=== PATIENT | male | born 1940 | race Caucasian/White ===

== ENCOUNTER 2016-05-06 08:28 | Day surgery (SDC) | payer MEDICARE, OTHER ==
[~2016-05-06] VITALS: Ht 188 cm; Wt 127.0 kg
[~2016-05-06 08:28] MED LIST: ABSORICA40 MG PO; AUGMENTIN 875-11 TAB PO; BENADRYL25 MG PO; BETAPACE 80 MG80 MG PO; COLACE100 MG PO; CORDARONE200 MG PO; DILAUDID4 MG PO; DILAUDID8 MG PO; DULCOLAX10 MG/SUPP RC; ELEQUIST; ELIQUIS2.5 MG PO; ELIQUIS5 MG PO; FISH OIL 1,0001 CA1 PO; FISH OIL 1,2001 CA1 PO; FLOMAX0.4 MG PO; LISINOPRIL10 MG PO; LISINOPRIL5 MG; LISINOPRIL5 MG PO; MIRALAX17 GM PO; MS CONTIN15 MG PO; MULTI-DAY VITAM1 TAB PO; PACERONE100 MG; PERCOCET 10/3251 TA1 PO; PHENAZOPYRIDIN100 MG PO; PLAVIX75 MG PO; PRED FORTE5 ML; SENOKOT-S TABLE1 TAB PO; TORADOL30 MG/ML IM; ZOFRAN4 MG PO
[2016-05-06 09:31] VITALS: BP 150/82; Ht 188 cm; Wt 127.0 kg
[2016-05-06 10:08] LABS: BASOPHILS 0.5 % (0.0-2.0); EOSINOPHILS 3.1 % (0-7); HEMATOCRIT 43.9 % (42.0-54.0); HEMOGLOBIN 14.1 g/dL (13.5-17.5); IMMATURE GRANULOCYTES 0.3 % (0-5); LYMPHOCYTES 28.1 % (15-50); MCH 32.6 pg (26.0-34.0); MCHC 32.1 g/dL (31.0-37.0); MCV 101.6 fL (80.0-100.0); MEAN PLATELET VOLUME 10.8 fL (7.4-10.4); PLATELET COUNT 187 10x3/uL (130-400); RBC 4.32 10x6/uL (4.20-6.10); RDW 14.2 % (11.5-14.5); WBC 5.9 10x3/uL (4.8-10.8)
[2016-05-06 10:23] LABS: CALC OSMOLALITY 284 mosm/kg (275-300); CALCIUM 9.2 mg/dL (8.5-10.1); CARBON DIOXIDE 32.7 mmol/L (21.0-32.0); CHLORIDE - SERUM 103 mmol/L (98-107); CREATININE - SERUM 0.8 mg/dL (0.6-1.3); POTASSIUM - SERUM 4.6 mmol/L (3.5-5.1); SODIUM 143 mmol/L (136-145); UREA NITROGEN 12 mg/dL (7-18); eGFR NON AFRICAN AMERICAN > 90 mL/min (90-120)
[2016-05-06 10:26] LABS: GLUCOSE 99 mg/dL (74-106)
[2016-05-06] MEDS ORDERED: DILAUDID2 MG PO (12:21)
--- NOTE | 2016-05-06 12:51 | NUR ---
RECD PT TO RECOVERY WITH DECREASED RESP STATUS, ANESTHESIA AT BS, NRB MASK APPLIED. COLOR DUSKY UPON ARRIVAL, NOW PINK.
--- NOTE | 2016-05-06 13:10 | NUR ---
RESP STATUS NOW WNL ON 4LNC. STILL HAS SOME THICK SECRETIONS, UPDRAFT GIVEN.
--- NOTE | 2016-05-06 15:10 | NUR ---
PT TOLERATED FULL LIQUIDS. UP OOB TO BR, ATTEMPTED TO VOID BUT WAS UNABLE TO AT THIS TIME. MORE LIQUIDS OFFERED. PT SITTING UP ON SIDE OF BED. ENCOURAGED TO DEEP BREATHE AND COUGH TO IMPROVE O2 SAT. CONTINUES ON O2 NASAL CANNULA, TITRATING TO KEEP O2 >92%. WILL CONTINUE TO MONITOR.
--- NOTE | 2016-05-06 16:24 | NUR ---
1600- ATTEMPTED TO VOID WITHOUT SUCCESS. CONTINUES TO DRINK FLUIDS. 1610- 2ND BAG OF LR INFUSING. PT ENCOURAGED TO WALK. O2 >92% WITH O2. 1620- PT RETURNED TO ROOM, PLACED ON 2L O2 TO ACHIEVE SAT >92%, AGAIN ENCOURAGED AND COACHED TO DEEP BREATHE AND COUGH. CONTINUES AT BED SIDE. REPORT GIVEN TO VIJAY CAN.
--- NOTE | 2016-05-06 19:00 | NUR ---
1630 BACK IN ROOM COUGHED UP SOME SECRETIONS O2 AT 2L N/C.SAT TO 91 %.STILL UNABLE TO VOID ON 2ND BACK OF FLUIDS.
--- NOTE | 2016-05-06 19:03 | NUR ---
1715 SAT TO 94 % ON ROOM AIR. UP AND VOIDED WENT OVER DISCHARGE INSTRUCTIONS APPOINTMENT PAIN MED AND VERBALLY UNDERSTANDS.1720 TO HOME VIA W/C WITH WITH .
--- NOTE | 2016-06-04 13:21 | OP ---
PATIENT NAME: ALLI CHILDRESS MEDICAL RECORD: [id number] :36 LOCATION:D.OPS ADMISSION DATE: SURGEON: JARRETT CAMPBELL MD DATE OF OPERATION: 05/06/2016 PREOPERATIVE DIAGNOSES: 1. Internal hemorrhoids. 2. Coronary artery disease. 3. Atrial fibrillation. 4. Hypertension. POSTOPERATIVE DIAGNOSES: 1. Internal hemorrhoids. 2. Coronary artery disease. 3. Atrial fibrillation. 4. Hypertension. PROCEDURE: PPH stapled hemorrhoidectomy. SURGEON: Jarrett Campbell MD REPORT OF PROCEDURE: The patient was placed in the jackknife prone position and the perianal region was prepped and draped in sterile fashion. The PPH anoscope was inserted and sutured down on all 4 sides using interrupted 3-0 silk. The 2-0 Prolene was used to make a pursestring a couple of centimeters inside the dentate line. The patient had a large amount of hemorrhoidal vasculature present with a large collection being on the left side and the anterior side. Once the pursestring was in place, then we inserted the PPH stapler. This was fired and a ring of tissue was removed. There were 2 areas of bleeding and these were oversewn with [id number] 2-0 chromics. We then irrigated out the rectum and assured there was no sign of any further bleeding. At this point, the anoscope was removed and a piece of Gelfoam dipped in [place] was inserted into the anus. COMPLICATIONS: None. CONDITION: Stable. ANESTHESIA: General endotracheal. BLOOD LOSS: Minimal. TRANSINT:[id number] Voice Confirmation ID: [id number] DOCUMENT ID: [id number] JARRETT CAMPBELL MD at 1321 CC: JACI CATES MD and CLARI SANFORD MD [id number] DICTATION DATE: 05/06/16 1225 PROBATE PARALEGAL: 05/06/162007 [facility] 05/06/[address] [address]
== END 2016-05-06 17:20 | disposition home or self-care (01) ==
LOC: D.OPS 08:28 → D.PAN 11:00 → D.OPS 13:15 → D.PAN 13:15 → D.OPS 17:20
PROVIDERS: Surgery
DX: K64.8 Other hemorrhoids (principal); I25.10 Atherosclerotic heart disease of native coronary artery without angina pectoris; I48.91 Unspecified atrial fibrillation; I10 Essential (primary) hypertension

== ENCOUNTER 2017-04-07 12:16 | Inpatient (IN) | payer MEDICARE, OTHER ==
[~2017-04-07] VITALS: Ht 188 cm; Wt 115.7 kg
[~2017-04-07 12:16] MED LIST changes: +DILAUDID2 MG PO
[2017-04-07 14:04] LABS: ALBUMIN 2.8 g/dL (3.4-5.0); ALKALINE PHOSPHATASE 82 U/L (46-116); ALT (SGPT) 30 U/L (10-68); BILIRUBIN - TOTAL 0.47 mg/dL (0.2-1.3); CALC OSMOLALITY 283 mosm/kg (275-300); CALCIUM 8.7 mg/dL (8.5-10.1); CHLORIDE - SERUM 105 mmol/L (98-107); CREATININE - SERUM 0.9 mg/dL (0.6-1.3); GLUCOSE 121 mg/dL (74-106); POTASSIUM - SERUM 3.8 mmol/L (3.5-5.1); PRO BNP 2239 pg/mL (0-450); PROTEIN - SERUM 7.3 g/dL (6.4-8.2); SODIUM 140 mmol/L (136-145); UREA NITROGEN 25 mg/dL (7-18); eGFR NON AFRICAN AMERICAN 87 mL/min (90-120)
[2017-04-07 14:19] VITALS: BP 133/66; BMI 32.8
[2017-04-07 21:39] VITALS: BP 140/87
[2017-04-08 00:15] VITALS: BP 146/54
[2017-04-08 04:00] VITALS: BP 146/75
[2017-04-08 08:54] VITALS: BP 150/93
[2017-04-08 10:33] VITALS: BMI 32.7
[2017-04-08 16:30] VITALS: BP 134/76
[2017-04-08 16:40] VITALS: Ht 188 cm; Wt 115.7 kg
[2017-04-08 23:18] VITALS: BP 145/75
[2017-04-09 05:49] LABS: BASOPHILS 0.3 % (0-2); EOSINOPHILS 0.7 % (0-7); HEMATOCRIT 36.8 % (42.0-54.0); HEMOGLOBIN 11.3 g/dL (13.5-17.5); IMMATURE GRANULOCYTES 0.4 % (0-5); LYMPHOCYTES 18.5 % (15-50); MCH 28.5 pg (26.0-34.0); MCHC 30.7 g/dL (31.0-37.0); MCV 92.9 fL (80.0-100.0); MEAN PLATELET VOLUME 10.8 fL (7.4-10.4); MONOCYTES 8.9 % (2-11); NEUTROPHILS 71.2 % (40-80); RBC 3.96 10x6/uL (4.20-6.10); RDW 15.3 % (11.5-14.5); WBC 6.7 10x3/uL (4.8-10.8)
[2017-04-09 05:50] LABS: PLATELET COUNT 267 10x3/uL (130-400)
[2017-04-09 06:08] LABS: CALC OSMOLALITY 279 mosm/kg (275-300); CALCIUM 8.8 mg/dL (8.5-10.1); CARBON DIOXIDE 31.2 mmol/L (21.0-32.0); CHLORIDE - SERUM 102 mmol/L (98-107); CREATININE - SERUM 0.8 mg/dL (0.6-1.3); GLUCOSE 102 mg/dL (74-106); POTASSIUM - SERUM 3.4 mmol/L (3.5-5.1); SODIUM 140 mmol/L (136-145); eGFR NON AFRICAN AMERICAN > 90 mL/min (90-120)
[2017-04-09 06:13] LABS: UREA NITROGEN 16 mg/dL (7-18)
[2017-04-09 09:24] VITALS: BP 149/95
[2017-04-09] MEDS ORDERED: ZITHROMAX500 MG PO (12:38)
[2017-04-09] MEDS ORDERED: OMNICEF300 MG PO (12:39)
[2017-04-09] MEDS ORDERED: VENTOLIN HFA18 GM INH (12:40)
[2017-04-09 12:48] VITALS: BP 150/74
== END 2017-04-09 14:19 | disposition home or self-care (01) | DRG 193 ==
LOC: D.LAB 12:16 → D.MS 12:18
PROVIDERS: Family Medicine; Internal Medicine Nephrology
DX: J18.9 Pneumonia, unspecified organism (principal); J96.21 Acute and chronic respiratory failure with hypoxia; J44.0 Chronic obstructive pulmonary disease with (acute) lower respiratory infection; N17.9 Acute kidney failure, unspecified; J44.9 Chronic obstructive pulmonary disease, unspecified; I10 Essential (primary) hypertension; E78.5 Hyperlipidemia, unspecified; I48.91 Unspecified atrial fibrillation; I25.10 Atherosclerotic heart disease of native coronary artery without angina pectoris; G25.81 Restless legs syndrome; Z95.1 Presence of aortocoronary bypass graft; R79.89 Other specified abnormal findings of blood chemistry

== ENCOUNTER 2017-04-15 12:18 | Inpatient (IN) | payer MEDICARE, OTHER | END 2017-04-21 13:30 | disposition home health service (06) | DRG 291 | LOC: D.SDCHOLD 12:18 → D.M2 14:47 | DX: I11.0 Hypertensive heart disease with heart failure (principal); J96.21 Acute and chronic respiratory failure with hypoxia; J18.9 Pneumonia, unspecified organism; J44.0 Chronic obstructive pulmonary disease with (acute) lower respiratory infection; I50.9 Heart failure, unspecified; I08.3 Combined rheumatic disorders of mitral, aortic and tricuspid valves; I25.10 Atherosclerotic heart disease of native coronary artery without angina pectoris; I48.0 Paroxysmal atrial fibrillation; Z95.5 Presence of coronary angioplasty implant and graft; Z95.1 Presence of aortocoronary bypass graft ==

== ENCOUNTER 2017-04-26 07:49 | Outpatient (CLI) | payer MEDICARE, OTHER ==
[~2017-04-26] VITALS: Ht 188 cm; Wt 106.8 kg
--- NOTE | ~2017-04-26 | OP ---
PATIENT NAME: ALLI CHILDRESS MEDICAL RECORD: [id number] :38 LOCATION:D.CAT ADMISSION DATE: SURGEON: CLARI SANFORD MD DATE OF OPERATION: 04/26/2017 PROCEDURES: 1. PTCA stent RCA. 2. Intravascular ultrasound. 3. Left heart catheterization. 4. Selective coronary angiography. 5. Vein graft angiography. 6. BLOCK angiography. INDICATION: Angina and coronary artery disease. PROCEDURE IN DETAIL: After informed consent was obtained and after detailed explanation of risks, benefits as well as alternative therapies, the patient elected to proceed with angiogram and angioplasty. The right femoral area was prepped and draped in normal sterile fashion. Right femoral artery was cannulated via modified Seldinger technique with placement of 6-Greek sheath. All catheters exchanged through this sheath. FINDINGS: Left ventriculogram was not performed due to inability to cross the valve. SELECTIVE CORONARY ANGIOGRAPHY: 1. Left main showed no significant angiographic disease. 2. Left anterior descending is totally occluded mid vessel. 3. BLOCK to the LAD is widely patent. Distal LAD is widely patent. 4. Left circumflex has mild irregularies but no flow-limiting stenosis. Previously placed stent is widely patent with no significant restenosis. 5. Right coronary has a 76% stenosis confirmed by intravascular ultrasound proximally. PTCA STENT OF THE RIGHT CORONARY: The stent used was 4.0 x 15 mm Integrity taken to 21 atmospheres. Result was 0% residual stenosis. OVERALL IMPRESSION: Successful percutaneous transluminal coronary angioplasty stent of the right coronary artery going from 76% initial stenosis to 0% residual. TRANSINT:[id number] Voice Confirmation ID: [id number] DOCUMENT ID: [id number] CLARI SANFORD MD CC: [id number] DICTATION DATE: 04/26/17 1047 GEOLOGY TEACHER: 04/26/17 1103 [facility] [address] [place] [address]
--- NOTE | ~2017-04-26 | HP ---
PATIENT: ALLI CHILDRESS MEDICAL RECORD: [id number] ACCOUNT: [id number] LOCATION:[facility] : 36 ADMISSION DATE: 04/26/17 HISTORY AND PHYSICAL EXAMINATION DATE OF SERVICE: 04/26/2017 DIAGNOSES: 1. Angina. 2. Paroxysmal atrial fibrillation. 3. Hypertension. 4. Hyperlipidemia. 5. Chronic obstructive pulmonary disease. 6. Smoking history. 7. Coronary artery disease. HISTORY OF PRESENT ILLNESS: This is a gentleman with past history of coronary artery disease, who began having chest pain, chest discomfort, and association with paroxysmal atrial fibrillation. He was converted to sinus rhythm and maintained on sinus rhythm; however, he continues to have episodes of chest discomfort. REVIEW OF SYSTEMS: The patient reports easy bruising but reports no swollen glands. The patient reports no fever, no night sweats, no significant weight gain, no significant weight loss. No significant exercise tolerance. The patient reports no dry eyes, no irritation, no vision change. Patient reports no difficulty hearing and no ear pain. Patient reports no frequent nose bleeds or nose and sinus problems. Patient reports on arm pain on exertion. No shortness of breath while lying down. No history of heart murmur. Patient reports no cough, no wheezing or coughing up blood. Patient reports no abdominal pain, no vomiting. Normal appetite. No diarrhea and not vomiting blood. No nausea and no constipation. Patient reports no incontinence. No difficulty urinating. No hematuria. No increased frequency. Patient reports no muscle aches. No weakness, no arthralgias, no back pain. No swelling of the extremities. Patient reports no abnormal mole, no jaundice, no rashes. Reports no loss of consciousness. No weakness and no numbness. No seizures, dizziness, or headaches. The patient reports no depression, no sleep disturbance, feeling safe in a relationship and no alcohol abuse. Patient reports on fatigue. Reports no runny nose or sinus pressure. No itching, no hives, and no frequent sneezing. PHYSICAL EXAMINATION: GENERAL APPEARANCE: Well-nourished, well-developed, appears stated age. Level of distress, comfortable. PSYCHIATRIC: Mental status, alert, normal affect. Orientation, oriented to time, place and person. EYES: Lids and conjunctiva, noninjected. No discharge, no pallor. ENT: Lips, teeth, gums, normal dentition. Oropharynx, no cyanosis, no pallor. NECK: Carotid arteries, bilateral normal upstroke, no bruits, no thrills. JUGULAR VEINS: No jugular venous pressure or distention. CERVICAL LYMPH NODES: Nontender, nonenlarged. THYROID: Not enlarged. Nontender. No nodules. LUNGS: Respiratory effort, unlabored. CHEST: Normal curvature. No thoracic deformity. No chest wall tenderness. Percussion, resonant. Auscultation, clear. No wheezes, no rales, no rhonchi. HISTORY AND PHYSICAL [id number] ALLI CHILDRESS CARDIOVASCULAR: Precordial exam, nondisplaced. No heaves or pericardial thrills. Rate and rhythm, regular. Heart sounds, normal S1, normal S2. No S3, no gallop, no rub. Systolic murmur, not heard. Diastolic murmur, not heard. EXTREMITIES: No cyanosis, no edema. Peripheral pulses, full and equal in all extremities, except as noted. No bruits appreciated. ABDOMEN: Soft, nondistended. Normal aorta. No bruit. Nontender. No masses. Liver, nontender, no hepatomegaly. Spleen, nontender, no splenomegaly. MUSCULOSKELETAL: No joint tenderness. No joint swelling. No erythema. NEUROLOGICAL: Normal gait, normal strength, normal tone. SKIN: Warm and dry. OVERALL IMPRESSION: Anginal symptomatology with a past history of coronary artery disease, not secondary to atrial fibrillation, most likely has hemodynamically significant coronary artery disease. We will proceed with coronary angiography. Further care depends on the findings of the angiography. TRANSINT:[id number] Voice Confirmation ID: [id number] DOCUMENT ID: [id number] CLARI SANFORD MD CC: [id number] DICTATION DATE: 04/26/1743 CARPET INSTALLER: 04/26/17 1005 [facility] [address] [place] [address]
--- NOTE | ~2017-04-26 | HEMODYNAMI ---
PATIENT:ALLI CHILDRESS MEDICAL RECORD: [id number] : 36 LOCATION:[facility] ADMISSION DATE: 04/26/17 Generatedon:04/26/201710:43 Patient name: ALLI CHILDRESS Patient #: [id number] SSN: : 1940 Date of study: 04/26/2017 Page: Of Hemodynamic Procedure Report Patient Data Patient Demographics Procedure consent was obtained First Name: ALLI Gender: Male Last Name: FIOR : 1940 Middle Initial: E Age: 76 year(s) Patient #: [id number] Race: Unknown Additional ID: [id number] Contact details [address]: [address] [place] [address] State: [place] City: [place] Zip code: [address] Past Medical History Allergies Allergen Reaction Date Comments Reported Other allergy 04/26/2017 iodine, codeine Admission Admission Data Admission Date: 04/26/2017 Admission Time: 7:49 Lab Results Lab Result Date: 04/26/2017 Lab Result Time: 0:00 Biochemistry Name Units Result Min Max BUN mg/dl 21 --(----)-* 7 18 Creatinine mg/dl 1 --(--*-)-- 0.6 1.3 CBC Name Units Result Min Max Hemoglobin g/dl 11.6 *-(----)-- 13.5 17.5 Procedure Procedure Types Cath Procedure Diagnostic Procedure LHC LHC w/Coronaries w/Grafts FFR/IVUS Intra-Coronary IVUS Initial PCI Procedure Coronary Stent Coronary Stent Initial Miscellaneous Procedures Moderate Sedation up to 15 minutes Procedure Description Procedure Date Procedure Date: 04/26/2017 Procedure Start Time: 10:20 Procedure End Time: 10:42 Procedure Staff Name Function Fortino Sarmiento MD Performing Physician Tayler Gross RT Monitor Gamaliel Gómez RT Scrub Davonte Sibley RN Nurse Procedure Data Cath Procedure Fluoroscopy Diagnostic fluoroscopy Total fluoroscopy Time: 6.7 time: 6.7 min min Diagnostic fluoroscopy Total fluoroscopy dose: dose: 481.64 mGy 481.64 mGy Contrast Material Contrast Material Type Amount (ml) Isovue 300 103 Entry Location Entry Primary Successful Side Size Upsize Upsize Entry Closure Succes sful Closure Location (Fr) 1 (Fr) 2 (Fr) Remarks Device Remarks Femoral Right 5 Fr 6 Fr Exoseal artery Short Estimated blood loss: 10 ml Diagnostic catheters Device Type Used For End Catheter Placement MULTIPACK Pigtail 5 Fr Procedure catheter MULTIPACK JL 4.0 5Fr Procedure catheter MULTIPACK 3DRC 5Fr Procedure catheter DIAGNOSTIC AR 2 MOD 5 Fr Procedure catheter ([id number]) Procedure Complications No complications Procedure Medications Medication Administration Route Dosage Oxygen NC 2 l/min Lidocaine 2% added to field 20 Heparin Flush Bag added to field 2 bags (1000units/500ml NS) 0.9% NaCl I.V. 100 ml/hr Versed I.V. 1 mg Fentanyl I.V. 50 mcg Versed I.V. 1 mg Fentanyl I.V. 50 mcg Versed I.V. 1 mg Fentanyl I.V. 50 mcg Heparin Bolus I.V. 4000 units Integrilin (Bolus I.V. 9.5 ml 2mg/ml) Plavix P.O. 600 mg Hemodynamics Rest HGB: 11.6 (g/dl) Heart Rate: 71 (bpm) Snapshots Pre Cath Intra NCS Post Cath Vital Signs Time Heart Resp SPO2 etCO2 NIBP (mmHg) Rhythm Pain Sedation Rate (ipm) (%) (mmHg) Status Level (bpm) 10:04:18 68 14 97 32.3 138/79(102) NSR 0 (11) 10(A) , No pain 10:08:36 67 17 94 32.2 126/83(97) NSR 0 (11) 10(A) , No pain 10:12:52 67 17 96 0 132/84(97) NSR 0 (11) 10(A) , No pain 10:17:08 65 16 94 19.5 127/75(97) NSR 0 (11) 10(A) , No pain 10:21:28 62 17 95 30 126/73(98) NSR 0 (11) 9(A) , No pain 10:25:49 65 15 94 33.7 122/72(95) NSR 0 (11) 9(A) , No pain 10:30:05 69 16 94 32.3 126/78(98) NSR 0 (11) 9(A) , No pain 10:34:19 68 17 95 20.2 128/78(102) NSR 0 (11) 9(A) , No pain 10:38:35 69 17 95 36 125/72(105) NSR 0 (11) 10(A) , No pain Medications Time Medication Route Dose Verified Delivered Reason Notes Effectiveness by by 10:03:57 Oxygen NC 2 Fortino Buffie used for l/min Torsten Sibley RN procedure 10:04:04 Lidocaine 2% added 20ml Fortino Fortino for local to vial Torsten Sarmiento MD anesthetic field 10:04:09 Heparin Flush added 2 Fortino Fortino used for Bag to bags Torsten Sarmiento MD procedure (1000units/500ml field NS) 10:08:31 0.9% NaCl I.V. 100 Fortino Buffie Per physician ml/hr Torsten Sibley RN 10:19:45 Versed I.V. 1 mg Fortino Arauz for sedation Torsten Sibley RN 10:19:52 Fentanyl I.V. 50 Fortino Buffie for sedation mcg Torsten Sibley RN 10:24:49 Versed I.V. 1 mg Fortino Houserie for sedation Torsten Sibley RN 10:24:53 Fentanyl I.V. 50 Fortino Buffie for sedation mcg Torsten Sibley RN 10:31:12 Versed I.V. 1 mg Fortino Houserie for sedation Torsten Sibley RN 10:31:15 Fentanyl I.V. 50 Fortino Houserie for sedation mcg Torsten Sibley RN 10:33:56 Heparin Bolus I.V. 4000 Fortino Arauz for verifi ed units Torsten Sibley RN anticoagulation with dr sarmiento 10:35:55 Integrilin I.V. 9.5 Fortino Arauz for wasted (Bolus 2mg/ml) ml Torsten Sibley RN antiplatelet 0.5 ml therapy of vial 10:40:19 Plavix P.O. 600 Fortino Arauz for mg Torsten Sibley RN antiplatelet therapy Procedure Log Time Note 9:53:26 Informed consent obtained and on chart 9:53:29 Diagnostic Cath Status : Elective 9:53:54 Gamaliel MARTE(R) (CV) sent for patient. Start room use. 9:53:56 Time tracking: Regular hours 9:54:01 Plan of Care:Hemodynamics will remain stable., Cardiac rhythm will remain stable., Comfort level will be maintained., Respiratory function will remain adequate., Patient/ family verbilizes understanding of procedure., Procedure tolerated without complication., Recovers from procedure without complications.. 9:54:42 Patient received from Pre/Post Procedure Room to CCL 3 Alert and oriented. Tansferred to table in Supine position. 9:54:45 Warm blankets applied, and lexii hugger turned on for patient comfort. 9:54:46 Correct patient and procedure confirmed by team. 10:03:05 Vital chart was started 10:03:17 Rhythm: sinus rhythm 10:03:29 Baseline sample Acquired. 10:03:31 Full Disclosure recording started 10:03:37 H&P Date Dictated: 04/26/2017 New H&P dictated by physician.. 10:03:38 Pre-procedure instructions explained to patient. 10:03:38 Pre-op teaching completed and patient verbalized understanding. 10:03:41 Family in patients room. 10:03:42 Patient NPO since Midnight. 10:03:56 Patient allergic to Other allergyiodine, codeine 10:03:57 Oxygen 2 l/min NC was administered by Davonte Sibley RN; used for procedure; 10:04:04 Lidocaine 2% 20ml vial added to field was administered by Fortino Sarmiento MD; for local anesthetic; 10:04:09 Heparin Flush Bag (1000units/500ml NS) 2 bags added to field was administered by Fortino Sarmiento MD; used for procedure; 10:05:14 Is the patient allergic to Iodine/contrast media? Yes. 10:05:15 Was the patient premedicated? Yes 10:05:18 Patient diabetic? No. 10:05:21 Previous problem with sedation/anesthesia? No ? 10:05:22 Snore? No 10:05:28 Sleep apnea? No 10:05:29 Deviated septum? No 10:05:31 Opens mouth fully? Yes 10:05:32 Sticks out tongue? Yes 10:05:35 Airway obstruction? Yes COPD 10:05:39 Dentures? No ? 10:05:41 Pre procedure: right dorsailis pedis pulse 2+ Normal; easily identifiable; not easily obliterated 10:05:44 Patient pain scale 0/10 ?. 10:08:31 0.9% NaCl 100 ml/hr I.V. was administered by Davonte Sibley RN; Per physician; 10:08:42 IV patent on arrival in right wrist with 0.9% NaCl at [facility]. 10:10:21 Lab Result : BUN 21 mg/dl 10:10:21 Lab Result : Hemoglobin 11.6 g/dl 10:10:21 Lab Result : Creatinine 1 mg/dl 10:10:47 Lab results completed and on chart. 10:10:50 Right groin area was prepped with chlora-prep and draped in sterile fashion 10:10:51 Sharps counted by scrub and verified by R.N. 10:10:51 Alarms reviewed by R. N. 10:12:09 Physician paged 10:12:27 Use device set Femoral Dx 10:12:28 ACIST Syringe (14267) opened to sterile field. 10:12:30 Bag Decanter (2002S) opened to sterile field. 10:12:31 ACIST Hand Control (06645) opened to sterile field. 10:12:32 ACIST Manifold (03736) opened to sterile field. 10:12:32 Tegaderm 4 x 4 (1626W) opened to sterile field. 10:12:34 Medline Cath Pack ([id number]) opened to sterile field. 10:12:34 SHEATH 5FR [place] (ABS019) opened to sterile field. 10:12:35 DIAGNOSTIC WIRE .035 260cm J wire (742631) opened to sterile field. 10:12:36 PERCUTANEOUS ENTRY 19GA needle opened to sterile field. 10:12:39 DIAGNOSTIC Multipack 5Fr catheter set (KF6327) opened to sterile field. 10:15:12 Zero performed for pressure channel P1 10:15:28 Zero performed for pressure channel P1 10:18:59 --------ALL STOP TIME OUT------ 10:18:59 Final Timeout: patient, procedure, and site verified with staff and physician. All members of the team are in agreement. 10:19:01 Right groin site verified by team. 10:19:04 Physical assessment completed. ASA score P 2 - A patient with mild systemic disease as per Fortino Sarmiento MD. 10:19:09 Sedation plan: IV Moderate Sedation Medication:Versed, Fentanyl 10:19:45 Versed 1 mg I.V. was administered by Davonte Sibley RN; for sedation; 10:19:52 Fentanyl 50 mcg I.V. was administered by Davonte Sibley RN; for sedation; 10:20:31 Procedure started. 10:20:35 Local anesthetic to right femoral artery with Lidocaine 2% by Fortino Sarmiento MD.INITIAL ACCESS ONLY 10:21:11 A 5 Fr sheath was inserted into the Right Femoral artery 10::34 A MULTIPACK Pigtail 5 Fr catheter was advanced over the wire and used for Procedure. 10:24:01 unable to cross valve 10:24:04 Catheter exchanged over wire. 10:24:29 A MULTIPACK JL 4.0 5Fr catheter was advanced over the wire and used for Procedure. 10:24:49 Versed 1 mg I.V. was administered by Davonte Sibley RN; for sedation; 10:24:51 LCA angiography performed. 10:24:53 Fentanyl 50 mcg I.V. was administered by Davonte Sibley RN; for sedation; 10:25:54 Catheter removed. 10:26:10 A MULTIPACK 3DRC 5Fr catheter was advanced over the wire and used for Procedure. 10:26:43 BLOCK to LAD angiography performed. 10:27:42 RCA angiography performed. 10:28:06 Catheter removed. 10:28:16 [place] IVUS Catheter (64011U) opened to sterile field. 10:28:20 SHEATH 6FR [place] (OQN344) opened to sterile field. 10:28:25 INFLATOR Merit BasixCompak (TR1022) opened to sterile field. 10:29:01 Sheath upsized to a 6 Fr Short. 10:29:21 GUIDE 6FR AR 2.0 catheter ([id number]) opened to sterile field. 10:30:00 GRAPHIX 182cm guide wire ([id number]) opened to sterile field. 10:30:09 6 Fr ar2 guide catheter was inserted over the wire 10:30:14 pt graphix wire advanced. 10:31:03 Wire advanced across lesion. 10:31:12 Versed 1 mg I.V. was administered by Davonte Sibley RN; for sedation; 10:31:15 Fentanyl 50 mcg I.V. was administered by Davonte Sibley RN; for sedation; 10:31:23 IVUS catheter advanced over wire. 10:33:28 IVUS pass to RCA lesion performed. 10:33:29 IVUS catheter removed over wire. 10:33:56 Heparin Bolus 4000 units I.V. was administered by Davonte Sibley RN; for anticoagulation; verified with dr sarmiento 10:35:55 Integrilin (Bolus 2mg/ml) 9.5 ml I.V. was administered by Davonte Sibley RN; for antiplatelet therapy; wasted 0.5 ml of vial 10:36:19 Inflation Number: 1 A INTEGRITY RX 4.0 x 15 stent ([id number]) was prepped and advanced across the Prox RCA. The stent was deployed at 21 ROSS for 0:10 (min:sec). 10:36:49 Stent catheter was removed intact over wire. 10:36:50 Wire removed. 10:36:50 Guide catheter removed. 10:36:56 EXOSEAL 6Fr (EX600) opened to sterile field. 10:37:06 Sheath removed intact; hemostasis achieved with Exoseal to the Right Femoral artery. 10:37:52 Procedure ended.(Physican Out) 10:38:10 Fluoroscopy time 06.70 minutes. 10:38:21 Flurop Dose total: 481.64 10:38:21 Fluoroscopy dose: 481.64 mGy 10:38:24 Contrast amount:Isovue 300 103ml. 10:38:26 Sharps counted by scrub and verified by R.N. 10:38:31 Post-op/insertion site Right Femoral artery dressed using a 4 x 4 and Tegaderm. 10:38:36 Post right femoral artery:stable, soft, clean and dry 10:38:39 Post procedure: right dorsailis pedis pulse 2+ Normal; easily identifiable; not easily obliterated. 10:38:42 Post-procedure physical assessment completed. ASA score P 2 - A patient with mild systemic disease as per Fortino Sarmiento MD. 10:38:45 Post procedure rhythm: unchanged. 10:38:46 Estimated blood loss: 10 ml 10:38:48 Post procedure instruction explained to patient.Patient verbalizes understanding. 10:38:51 Patient needs reinforcement of post procedure teaching. 10:39:04 Procedure type changed to Cath procedure, Diagnostic procedure, LHC, LHC w/Coronaries w/Grafts, FFR/IVUS, Intra-Coronary IVUS Initial, PCI procedure, Coronary Stent, Coronary Stent Initial, Miscellaneous Procedures, Moderate Sedation up to 15 minutes 10:40:19 Plavix 600 mg P.O. was administered by Davonte Sibley RN; for antiplatelet therapy; 10:41:55 A DIAGNOSTIC AR 2 MOD 5 Fr catheter ([id number]) was advanced over the wire and used for Procedure. 10:42:05 ar 2 diag opened, but not used 10:42:22 Procedure and supply charges have been captured, reviewed, submitted and are correct. 10:42:25 Procedure Complication : No complications 10:42:26 Vital chart was stopped 10:42:28 See physician's report for complete and final results. 10:42:30 Report given to Pre/Post Procedure Room. 10:42:33 Patient transfered to Pre/Post Procedure Room with Bed. 10:42:35 Procedure ended. 10:42:35 Full Disclosure recording stopped 10:42:43 End room use (Document Last) Intervention Summary Intervention Notes Time ActionType Lesion and Equipment Action# Pressure Duration Attributes Used 10:36:19 Place stent Prox RCA INTEGRITY RX 1 21 00:10 4.0 x 15 stent ([id number]) Device Usage Item Name Manufacture Quantity Catalog Number Hospital Part Current Mini mal Lot# / Charge Number Stock Stock Serial# Code ACIST Acist 1 29265 501272 563840 703753 20 Syringe Medical (77573) Systems Inc Bag Decanter Microtek 1 2001S 281407 90358 456565 5 (2001S) Medical Inc. ACIST Hand Acist 1 50426 160650 512655 631000 5 Control Medical (62199) Systems Inc ACIST Acist 1 19138 338586 360313 844358 5 Manifold Medical (93589) Systems Inc Tegaderm 4 x 3M 1 1626W 101333 106836 556535 5 4 (1626W) Medline Cath Cardinal 1 [id number] 605335 82801 324772 5 [facility] ([id number]) SHEATH 5FR Terumo 1 SOP327 879857 016571 466601 40 [place] (CZF050) DIAGNOSTIC [facility] [place] 1 500247 443820 278055 164334 30 WIRE .035 260cm J wire (738611) PERCUTANEOUS Cook Medical 1 U15016 836717 783120 5 ENTRY 19GA needle DIAGNOSTIC Cardinal 1 LX7127 228475 29604 259132 30 Multipack Health 5Fr catheter set (FQ6997) MULTIPACK Cardinal 1 291259 5 Pigtail 5 Fr Health catheter MULTIPACK JL Cardinal 1 877151 5 4.0 5Fr Health catheter MULTIPACK Cardinal 1 932208 5 3DRC 5Fr Health catheter [place] 1 98591N 655109 060008 081850 8 [place] IVUS Catheter (51079Y) SHEATH 6FR Terumo 1 HJO149 265004 710846 412009 40 [place] (GIJ943) INFLATOR Merit 1 CR8888 081398 273013 379006 15 [facility] Medical BasixCompak (XR9857) GUIDE 6FR AR Medtronic 1 EN2YP07 093745 79961 615401 1 2.0 catheter (CP5YE16) GRAPHIX [place] 1 [id number] 580845 350006 536213 5 182cm guide Scientific wire ([id number]) INTEGRITY RX Medtronic 1 [id number] 672505 910039 391735 5 [id number] 4.0 x 15 stent ([id number]) EXOSEAL 6Fr Cardinal 1 EX600 569667 907798 868160 10 (EX600) Health DIAGNOSTIC Cardinal 1 [id number] 113463 780500 155528 20 AR 2 MOD 5 Health Fr catheter (478159Q) Signature Audit [place] Stage Time Signature Unsigned Intra-Procedure 04/26/2017 Tayler Gross 10:43:00 AM RT(R) Signatures Monitor : Tayler Gross Signature : RT Date : Time : [facility] [address] [place] [address]
[~2017-04-26 07:49] MED LIST changes: +K-TAB10 MEQ PO; +LASIX20 MG PO; +OMNICEF300 MG PO; +VENTOLIN HFA18 GM INH; +ZITHROMAX500 MG PO
[2017-04-26 08:18] VITALS: BP 135/71; Ht 188 cm; Wt 106.8 kg
[2017-04-26 08:29] LABS: HEMATOCRIT 37.4 % (42.0-54.0); HEMOGLOBIN 11.6 g/dL (13.5-17.5); LYMPHOCYTES 19.9 % (15-50); MCH 27.4 pg (26.0-34.0); MCV 88.2 fL (80.0-100.0); MEAN PLATELET VOLUME 10.1 fL (7.4-10.4); NEUTROPHILS 77.1 % (40-80); PLATELET COUNT 293 10x3/uL (130-400); RBC 4.24 10x6/uL (4.20-6.10); WBC 5.9 10x3/uL (4.8-10.8)
[2017-04-26 08:37] LABS: CALC OSMOLALITY 279 mosm/kg (275-300); CHLORIDE - SERUM 103 mmol/L (98-107); GLUCOSE 125 mg/dL (74-106); POTASSIUM - SERUM 4.7 mmol/L (3.5-5.1); SODIUM 138 mmol/L (136-145); UREA NITROGEN 21 mg/dL (7-18); eGFR NON AFRICAN AMERICAN 77 mL/min (90-120)
[2017-04-26] MEDS ORDERED: PLAVIX75 MG PO (10:47)
[2017-04-26] MEDS ORDERED: BAYER CHEWABLE81 MG PO (10:47)
== END 2017-04-26 14:30 | disposition home or self-care (01) ==
LOC: D.CATH 07:49
PROVIDERS: Internal Medicine Interventional Cardiology
DX: I25.10 Atherosclerotic heart disease of native coronary artery without angina pectoris (principal); Z01.812 Encounter for preprocedural laboratory examination

== ENCOUNTER 2018-12-25 13:23 | Inpatient (IN) | payer MEDICARE, OTHER ==
[~2018-12-25] VITALS: Ht 188 cm; Wt 109.5 kg
[~2018-12-25 13:23] MED LIST changes: +BAYER CHEWABLE81 MG PO
[2018-12-25 13:47] LABS: BASOPHILS 0.1 % (0-2); EOSINOPHILS 0 % (0-7); HEMATOCRIT 39.7 % (42.0-54.0); HEMOGLOBIN 12.8 g/dL (13.5-17.5); IMMATURE GRANULOCYTES 0.3 % (0-5); LYMPHOCYTES 7.9 % (15-50); MCH 29.4 pg (26.0-34.0); MCHC 32.2 g/dL (31.0-37.0); MCV 91.3 fL (80.0-100.0); MEAN PLATELET VOLUME 10.7 fL (7.4-10.4); MONOCYTES 6.9 % (2-11); NEUTROPHILS 84.8 % (40-80); RBC 4.35 10x6/uL (4.20-6.10); RDW 17.1 % (11.5-14.5); WBC 9.2 10x3/uL (4.8-10.8)
[2018-12-25 13:48] LABS: PLATELET COUNT 147 10x3/uL (130-400)
--- NOTE | 2018-12-25 13:48 | NUR ---
BLOOD TO LAB
[2018-12-25 13:57] LABS: CALC OSMOLALITY 282 mosm/kg (275-300); CALCIUM 8.5 mg/dL (8.5-10.1); CARBON DIOXIDE 24.9 mmol/L (21.0-32.0); CHLORIDE - SERUM 102 mmol/L (98-107); CREATININE - SERUM 1.3 mg/dL (0.6-1.3); INR 1.33 (0.85-1.17); SODIUM 135 mmol/L (136-145); UREA NITROGEN 25 mg/dL (7-18); eGFR NON AFRICAN AMERICAN 56 mL/min (90-120)
[2018-12-25 13:58] LABS: APTT 36.6 SECONDS (22.8-39.4); GLUCOSE 252 mg/dL (74-106)
[2018-12-25 13:59] LABS: D-DIMER-QUANTITATIVE 1.4 ug/mLFEU (0.20-0.54)
[2018-12-25 14:25] LABS: ALBUMIN 3.3 g/dL (3.4-5.0); ALKALINE PHOSPHATASE 81 U/L (46-116); ALT (SGPT) 20 U/L (10-68); BILIRUBIN - TOTAL 0.94 mg/dL (0.2-1.3); CKMB 0.6 U/L (0.0-3.6); CREATINE KINASE 87 UL (21-232); MAGNESIUM - SERUM 1.5 mg/dL (1.8-2.4); PRO BNP 2150 pg/mL (0-450); PROTEIN - SERUM 7.5 g/dL (6.4-8.2); TROPONIN-I < 0.017 ng/mL (0.000-0.060)
--- NOTE | 2018-12-25 18:30 | NUR ---
TRANSFER FROM ER BY W/C. CASEINTED TO ROOM. CALL LIGHT IN REACH. WILL CONT. PLAN OF CARE.
[2018-12-25 19:27] VITALS: BP 123/53; BMI 30.8
[2018-12-25 19:42] VITALS: BP 123/53
--- NOTE | 2018-12-25 20:00 | NUR ---
RECIEVED REPORT FROM OUTGOING NURSE. INITIAL ASSESSMENT COMPLETED. VSS, AAOX3, NO S/S OF RESP DISTRESS. PT ON TELE, 78 PACED AT THIS TIME. PT DENIES ANY PAIN AT THIS TIME. ON 2L. WILL CPOC.
[2018-12-25 23:49] VITALS: BP 130/49
[2018-12-26 04:48] VITALS: BP 142/58
[2018-12-26 05:53] LABS: BASOPHILS 0.2 % (0-2); EOSINOPHILS 0 % (0-7); HEMATOCRIT 40.3 % (42.0-54.0); IMMATURE GRANULOCYTES 0.3 % (0-5); LYMPHOCYTES 10.4 % (15-50); MCH 29.5 pg (26.0-34.0); MCHC 32.3 g/dL (31.0-37.0); MCV 91.4 fL (80.0-100.0); MEAN PLATELET VOLUME 9.8 fL (7.4-10.4); MONOCYTES 8.1 % (2-11); PLATELET COUNT 121 10x3/uL (130-400); RBC 4.41 10x6/uL (4.20-6.10); RDW 17.3 % (11.5-14.5)
[2018-12-26 05:54] LABS: WBC 12.4 10x3/uL (4.8-10.8)
[2018-12-26 06:38] LABS: CALCIUM 8.8 mg/dL (8.5-10.1); CARBON DIOXIDE 30.4 mmol/L (21.0-32.0); CHLORIDE - SERUM 102 mmol/L (98-107); CKMB 3.3 U/L (0.0-3.6); CREATININE - SERUM 1.3 mg/dL (0.6-1.3); MAGNESIUM - SERUM 1.7 mg/dL (1.8-2.4); PHOSPHOROUS 3.7 mg/dL (2.5-4.9); POTASSIUM - SERUM 3.6 mmol/L (3.5-5.1); SODIUM 138 mmol/L (136-145); TROPONIN-I 0.047 ng/mL (0.000-0.060); UREA NITROGEN 26 mg/dL (7-18); eGFR NON AFRICAN AMERICAN 56 mL/min (90-120)
[2018-12-26 06:41] LABS: CALC OSMOLALITY 283 mosm/kg (275-300); CREATINE KINASE 419 UL (21-232); GLUCOSE 145 mg/dL (74-106)
[2018-12-26 09:04] VITALS: BP 141/62
[2018-12-26 12:59] VITALS: BP 115/81
[2018-12-26 13:13] VITALS: Ht 188 cm; Wt 109.5 kg
[2018-12-26 16:50] VITALS: BP 156/62
[2018-12-26 17:35] LABS: ERYTHROCYTE SEDIMENTATION RATE 19 mm/hr (0-20)
--- NOTE | 2018-12-26 18:50 | NUR ---
EVENING ROUNDS COMPLETE. PT SITTING UP IN BED. NO SIGNS OF DISTRESS. PT DENIES ANY NEEDS OR PAIN AT THIS TIME. CL IN REACH, BED IN LOWEST POSITION.
[2018-12-26 20:00] VITALS: BP 118/61
[2018-12-27] VITALS: BP 122/54
[2018-12-27 04:00] VITALS: BP 123/57
[2018-12-27 05:58] LABS: BASOPHILS 0.4 % (0-2); EOSINOPHILS 1.7 % (0-7); HEMATOCRIT 41.6 % (42.0-54.0); HEMOGLOBIN 13.4 g/dL (13.5-17.5); IMMATURE GRANULOCYTES 0.1 % (0-5); LYMPHOCYTES 14.9 % (15-50); MCH 29.6 pg (26.0-34.0); MCHC 32.2 g/dL (31.0-37.0); MONOCYTES 10.3 % (2-11); NEUTROPHILS 72.6 % (40-80); PLATELET COUNT 124 10x3/uL (130-400); RBC 4.52 10x6/uL (4.20-6.10); RDW 17.6 % (11.5-14.5)
[2018-12-27 06:28] LABS: CALC OSMOLALITY 284 mosm/kg (275-300); CALCIUM 8.4 mg/dL (8.5-10.1); CARBON DIOXIDE 31.4 mmol/L (21.0-32.0); CHLORIDE - SERUM 102 mmol/L (98-107); GLUCOSE 110 mg/dL (74-106); MAGNESIUM - SERUM 1.9 mg/dL (1.8-2.4); PHOSPHOROUS 2.8 mg/dL (2.5-4.9); POTASSIUM - SERUM 3.2 mmol/L (3.5-5.1); SODIUM 140 mmol/L (136-145); UREA NITROGEN 26 mg/dL (7-18); eGFR NON AFRICAN AMERICAN 76 mL/min (90-120)
[2018-12-27 06:37] LABS: WBC 7.8 10x3/uL (4.8-10.8)
--- NOTE | 2018-12-27 07:37 | NUR ---
PT LAYING DOWN. STATES AWAITING D/C. DENIES NEEDS OR PAIN AT THIS TIME. ALERT AND ORIENTED. RR EVEN AND UNLABORED. WILL CONTINUE TO MONITOR.
--- NOTE | 2018-12-27 09:05 | NUR ---
REVA YAN NOTIFIED OF EVENT, ABG'S ORDERED PER T.
[2018-12-27 11:06] VITALS: BP 114/44
[2018-12-27] MEDS ORDERED: KLOR-CON M2020 MEQ PO (11:42)
[2018-12-27] MEDS ORDERED: LASIX40 MG PO (11:42)
[2018-12-27] MEDS ORDERED: MUCINEX600 MG PO (11:43)
--- NOTE | 2018-12-27 13:46 | NUR ---
D/C PAPERWORK REVIEWED WITH PT AND SPOUSE. VERBALIZED UNDERSTANDING AND NO FURTHER QUESTIONS AT THIS TIME. MONITOR REMOVED AND SENT BACK TO PRINCIPAL TECHNICAL ARCHITECT. D/C IV WITH CATHETER TIP INTACT. PT LEFT WITH ALL BELONGINGS VIA WHEELCHAIR TO PERSONAL VEHICLE.
--- NOTE | 2018-12-27 17:08 | MORECARE ---
CASE MANAGEMENT DISCHARGE SUMMARY PATIENT: ALLI CHILDRESS UNIT: [id number] ADM DATE: 12/25/18 AGE: 78 : 38 SEX: M ROOM/BED: D.0490 AUTHOR: PAMELA,DOC PHYSICIAN: REFERRING PHYSICIAN: FROYLAN CARPENTER MD DATE OF SERVICE: 12/27/18 Discharge Plan Patient Name: ALLI CHILDRESS Facility: [facility]:[place] : 1940 Planned Disposition: Home Anticipated Discharge Date: 12/27/18 Discharge Date: 12/27/2018 Expected LOS: 2 Initial Reviewer: [email or web address] Initial Review Date: 12/27/2018 Generated: 12/27/18 6:08 pm Comments DCP- Discharge Planning Updated by [email or web address]: Víctor Gonzales on 12/27/18 4:[address] Patient Name: ALLI CHILDRESS Admission Status: ER Accout number: [id number] Admission Date: 12-25-2018 : 1940 Admission Diagnosis: Attending: FROYLAN CARPENTER Current LOS: 2 Anticipated DC Date: 12-27-2018 Planned Disposition: Home Primary Insurance: MEDICARE A & B Discharge Planning Comments: CM MET WITH PT IN ROOM TO DISCUSS DISCHARGE PLANNING AND NEEDS. ALLI CHILDRESS provided verbal consent to discuss current and ongoing needs with/in the presence of: SIGNIFICANT OTHER, PRASAD. PT REPORTS LIVING AT HOME INDEPENDENTLY SIGNIFICANT OTHER. PT HAS A CANE WITH NO MEDICAL EQUIPMENT PROVIDER PREFERNECE. PT HAS NO OUTSIDE SERVICES ASSISTING IN THE HOME. CM DISCUSSED AVAILABILITY OF HOME HEALTH, REHAB SERVICES AND MEDICAL EQUIPMENT. PT DENIES DISCHARGE NEEDS, REPORTS PRASAD IS HERE TO TRANPSORT HOME AT DISCHARGE TODAY. FEDERAL AID COORDINATOR NURSE NOTIFIED. Hosted Services Analyst: Víctor Gonzales DCPIA - Discharge Planning Initial Assessment Updated by [email or web address]: Víctor Gonzales on 12/27/18 5:03 pm * Is the patient Alert and Oriented? Yes * How many steps to enter\exit or inside your home? * PCP DR. CATES * Pharmacy [facility] * Preadmission Environment Home with Family * ADLs Independent * Equipment Cane * Other Equipment NO MEDICAL EQUIPMENT PROVIDER PREFERENCE * List name and contact numbers for known caregivers / representatives who currently or will assist patient after discharge: PRASAD SEGURA, SIGNIFICANT OTHER, * Verbal permission to speak to the caregivers and representatives has been obtained from the patient. Yes * Community resources currently utilized None * Please name any agencies selected above. NONE * Additional services required to return to the preadmission environment? No * Can the patient safely return to the preadmission environment? Yes * Has this patient been hospitalized within the prior 30 days at any hospital? No Patient Name: ALLI CHILDRESS Page [phone] at 1708 All edits/amendments must be made on the electronic document DICTATION DATE: 12/27/181707 REPORT ANALYST: SUMANTH 12/27/181707 RPT#: [id number] DC DATE:12/27/18 STATUS: DIS IN [facility] [address] [place] [address] END OF REPORT
--- NOTE | 2019-01-02 11:40 | CN ---
PATIENT NAME:ALLI CHILDRESS MEDICAL RECORD: [id number] : 36 LOCATION:D. D.2109 ADMIT DATE: 12/25/18 ACCOUNT: [id number] CONSULTING PHYSICIAN: CLARI SANFORD MD REFERRING PHYSICIAN: FROYLAN CARPENTER MD DATE OF CONSULTATION: 12/25/2018 DIAGNOSES: 1. Shortness of breath. 2. Pulmonary edema. 3. Coronary artery disease. 4. Atrial fibrillation. 5. Hypertension. 6. Hyperlipidemia. 7. Cardiomyopathy. 8. Valvular heart disease, aortic valve replacement. HISTORY OF PRESENT ILLNESS: Mr. Childress is a patient known to us with history of coronary artery disease, status post coronary artery bypass graft surgery in April. He has not had any chest pain or chest discomfort. He was making a trip back from [place]. While in [place] [facility], he became very shaky, tremulous and he has been short of breath since. His chest x-ray is compatible with mild pulmonary edema. He has atrial fibrillation, which has been a problem and he has been short of breath from the atrial fibrillation. He is set for ablation for the atrial fibrillation Tuesday with Dr. Martinez in [place]. He is status post pacemaker by Dr. Martinez 2 weeks ago. His blood pressure is controlled on Coreg. Last evaluation of his ejection fraction was 40%. He does have valvular heart disease, aortic valve is replaced and this has been stable. PHYSICAL EXAMINATION: CONSTITUTIONAL/GENERAL APPEARANCE: Well nourished, well developed, appears stated age. EYES: Lids and conjunctivae noninjected. No discharge. No pallor. ENT: Lips within normal limit. No cyanosis. No pallor. NECK: Carotid arteries, bilateral normal upstroke. No bruits. No thrills. No jugular venous pressure or distention. CERVICAL LYMPH NODES: Nontender. Nonenlarged. THYROID: Not enlarged. No nodules. CARDIOVASCULAR: Precordial exam, nondisplaced. No heaves or pericardial thrills. Rate and rhythm, regular. Heart sounds, normal S1, normal S2. No S3, no gallop, no rub. Systolic murmur, not heard. Diastolic murmur, not heard. LUNG: He has bibasilar crackles compatible with pulmonary edema. ABDOMEN: Soft, nondistended, nontender. No abdominal pain, no vomiting and normal appetite. MUSCULOSKELETAL: No joint tenderness, normal gait, normal tone. SKIN: Warm and dry. OVERALL IMPRESSION: Mild pulmonary edema, congestive heart failure from chronic systolic dysfunction. We will reevaluate his ejection fraction on echocardiogram today, institute diuretic therapy this should be all he needs and he should be out within the next 1-2 days after diuretic therapy has been instituted. We definitely want him to get out in time to make his ablation for his atrial fibrillation as this is an extension of the atrial fibrillation contributing to the shortness of breath and pulmonary edema. CONSULT REPORT [id number] ALLI CHILDRESS TRANSINT:[id number] Voice Confirmation ID: [id number] DOCUMENT ID: [id number] CLARI SANFORD MD at 1140 CC: [id number] DICTATION DATE: 12/25/18 1548 SENIOR IOS SOFTWARE ENGINEER: 12/25/182221 DIS IN 12/27/18 [facility] [address] [place] [address]
--- NOTE | 2019-01-02 11:41 | EC ---
PATIENT:ALLI CHILDRESS DATE OF SERVICE: 12/25/18 SEX: M MEDICAL RECORD: [id number] DATE OF : 36 LOCATION:D. D.211 AGE OF PATIENT: 78 ADMISSION DATE: 12/25/18 REFERRING PHYSICIAN: INTERPRETING PHYSICIAN: CLARI SARMIENTO MD ECHOCARDIOGRAM REPORT ECHO CHARGES 4 ECHO COMPLETE Date: 12/26/18 CLINICAL DIAGNOSIS: SOB/ TAVR ECHOCARDIOGRAPHIC MEASUREMENTS (adult normal given) AC root (d.<3.7cm) 2.6 cm LV Septum d (<1.2 cm> 1.1 cm Valve Excursion 1.1 cm LV Septum (systole) 1.9 cm Left Atria (s.<4.0cm> 5.5 cm LVPW d(<1.2cm) 1.2 cm RV (d.<2.3cm) 4.1 cm LVPW (sytole) 1.3 cm LV diastole(<5.6CM) 8.1 cm MV E-F(>70mm/sec) cm LV systole 6.5 cm LVOT Diameter 1.9 cm MV exc.(>10mm) cm Est.ejection fraction (50-75%) % DOPPLER: LVIT cm/sec A 26 cm/sec E 114 cm/sec LA cm/sec RVSP 28.4 mmHg LVOT 121 cm/sec AOP1/2T m/s Asc. Ao 244 cm/sec RVOT 71 cm/sec RA cm/sec PA 85 cm/sec AV Gradient Peak 23.8 mmHg AV Mean 12.8 mmHg AV Area 1.5 cm MV Gradient Peak 6.5 mmHg MV Mean 2.5 mmHg MV Area cm COMMENTS: Oil Changer: Curt [facility] Pool Player: 1 Dr. Sarmiento TAPE# PACS Pericardial Effusion N DATE OF SERVICE: PROCEDURE: Echocardiogram. FINDINGS: 1. Left ventricular chamber size is dilated. Left ventricular systolic function is markedly reduced at 20% to 25%. 2. Left atrium is enlarged at 5.5 cm. Right atrium and right ventricular chamber sizes are as well, moderate to severely dilated. 3. 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 The remaining valvular structures have normal structure and motion. 4. Doppler interrogation reveals mild aortic insufficiency, mild mitral regurgitation, mild tricuspid regurgitation, no other valvular insufficiency or stenosis. 5. No evidence of pericardial effusion or left ventricular thrombus. TRANSINT:[id number] Voice Confirmation ID: [id number] DOCUMENT ID: [id number] CLARI SARMIENTO MD at 1141 CC: [id number] DICTATION DATE: 12/27/181202 DOCKWORKER: 12/27/18 120 DIS IN 12/27/18 [facility] [address] [id number]
== END 2018-12-27 13:53 | disposition home or self-care (01) | DRG 292 ==
LOC: D.ER 13:23 → D.M2 17:15
PROVIDERS: Family Medicine; ADMIT Internal Medicine Nephrology; ATTEND Internal Medicine Nephrology
DX: I11.0 Hypertensive heart disease with heart failure (principal); E87.1 Hypo-osmolality and hyponatremia; N17.9 Acute kidney failure, unspecified; I50.23 Acute on chronic systolic (congestive) heart failure; E78.5 Hyperlipidemia, unspecified; I42.9 Cardiomyopathy, unspecified; D64.9 Anemia, unspecified; I25.10 Atherosclerotic heart disease of native coronary artery without angina pectoris; I48.91 Unspecified atrial fibrillation

== ENCOUNTER 2019-02-05 10:17 | Emergency (ER) | payer MEDICARE, OTHER ==
[~2019-02-05] VITALS: Ht 188 cm; Wt 99.8 kg
[~2019-02-05 10:17] MED LIST changes: +KLOR-CON M2020 MEQ PO; +LASIX40 MG PO; +MUCINEX600 MG PO
[2019-02-05 10:19] VITALS: Ht 188 cm; Wt 99.8 kg
[2019-02-05] MEDS ORDERED: ELIQUIS5 MG PO (10:23)
[2019-02-05 11:06] LABS: CALC OSMOLALITY 276 mosm/kg (275-300); CARBON DIOXIDE 27.5 mmol/L (21.0-32.0); CHLORIDE - SERUM 103 mmol/L (98-107); CREATININE - SERUM 0.8 mg/dL (0.6-1.3); POTASSIUM - SERUM 3.5 mmol/L (3.5-5.1); SODIUM 136 mmol/L (136-145); UREA NITROGEN 14 mg/dL (7-18); eGFR NON AFRICAN AMERICAN > 90 mL/min (90-120)
[2019-02-05 11:07] LABS: GLUCOSE 178 mg/dL (74-106)
[2019-02-05 11:12] LABS: ALBUMIN 2.1 g/dL (3.4-5.0); ALKALINE PHOSPHATASE 97 U/L (46-116); ALT (SGPT) 14 U/L (10-68); BILIRUBIN - TOTAL 0.81 mg/dL (0.2-1.3); PROTEIN - SERUM 7.7 g/dL (6.4-8.2); URIC ACID 4.3 mg/dL (2.6-7.2)
[2019-02-05 11:19] LABS: C-REACTIVE PROTEIN 16.4 mg/dL (0.0-0.9)
[2019-02-05 11:23] LABS: BASOPHILS 0.2 % (0-2); EOSINOPHILS 0.7 % (0-7); HEMOGLOBIN 11.5 g/dL (13.5-17.5); IMMATURE GRANULOCYTES 0.4 % (0-5); LYMPHOCYTES 11.8 % (15-50); MCHC 31.9 g/dL (31.0-37.0); MEAN PLATELET VOLUME 10.2 fL (7.4-10.4); MONOCYTES 4.5 % (2-11); NEUTROPHILS 82.4 % (40-80); RBC 3.83 10x6/uL (4.20-6.10); RDW 16.3 % (11.5-14.5); WBC 9.1 10x3/uL (4.8-10.8)
[2019-02-05 11:33] LABS: PLATELET COUNT 335 10x3/uL (130-400)
[2019-02-05 14:09] LABS: PROTEIN - BODY FLUID 4.7 G/DL
[2019-02-05 15:07] LABS: EOS BF 5 %; MACROPHAGES BF 1 %; NEUT - BF 91 %
[2019-02-05 20:01] VITALS: BP 143/82
[2019-02-11 17:07] LABS: AEROBE ID Final report (())
== END 2019-02-05 19:57 | disposition short-term general hospital (02) ==
LOC: D.ER 10:17
PROVIDERS: Family Medicine
DX: M00.9 Pyogenic arthritis, unspecified (principal); T84.54XA Infection and inflammatory reaction due to internal left knee prosthesis, initial encounter; I11.0 Hypertensive heart disease with heart failure; I50.9 Heart failure, unspecified; I25.10 Atherosclerotic heart disease of native coronary artery without angina pectoris; Z95.1 Presence of aortocoronary bypass graft; Z95.0 Presence of cardiac pacemaker

== ENCOUNTER 2019-05-11 11:36 | Inpatient (IN) | payer MEDICARE, OTHER ==
[~2019-05-11] VITALS: Ht 188 cm; Wt 103.2 kg
[2019-05-11] VITALS (22 sets, daily range): BP systolic 108–183; BP diastolic 52–78; Ht 188 cm; Wt 103.2 kg
--- NOTE | ~2019-05-11 | HEMODYNAMI ---
PATIENT:ALLI CHILDRESS MEDICAL RECORD: [id number] : 36 LOCATION:D. ADMISSION DATE: 05/11/19 Generatedon:05/11/201912:48 Patient name: ALLI CHILDRESS Patient #: [id number] SSN: : 1940 Date of study: 05/11/2019 Page: Of Hemodynamic Procedure Report Patient Data Patient Demographics Procedure consent was obtained First Name: ALLI Gender: Male Last Name: FIOR : 1940 [facility] Initial: E Age: 78 year(s) Patient #: [id number] Race: Unknown Additional ID: [id number] Contact details [address]: [address] [place] [address] State: [place] City: [place] Zip code: [address] Past Medical History Allergies Allergen Reaction Date Comments Reported Other allergy 04/26/2017 iodine, codeine Other allergy 05/11/2019 CODEINE, IODINE Admission Admission Data Admission Date: 05/11/2019 Admission Time: 11:36 Admit Source: Emergency department Height (in.): 73.62 BSA: 2.26 (m2) Height (cm.): 187 BMI: 28.6 (kg/m2) Weight (lbs.): 220.46 Weight (kg.): 100 Procedure Procedure Types Cath Procedure Diagnostic Procedure Sedation Charges Moderate Sedation up to 15 minutes PCI Procedure AMI/SVG/DIGITAL PRODUCTION MANAGER PTCA or Stent AMI-BMS/GOPI Initial Hemochron ACT Test Procedure Description Procedure Date Procedure Date: 05/11/2019 Procedure Start Time: 12:14 Procedure End Time: 12:46 Procedure Staff Name Function Fortino Sarmiento MD Performing Physician Tayler Gross RT Monitor Kateryna Henderson RT Scrub Davonte Sibley RN Nurse Marie Brantley RN Senior Risk Analyst Procedure Data Cath Procedure Fluoroscopy Diagnostic fluoroscopy Total fluoroscopy Time: 9.9 time: 9.9 min min Diagnostic fluoroscopy Total fluoroscopy dose: dose: 2418 mGy 2418 mGy Contrast Material Contrast Material Type Amount (ml) Isovue 300 201 Entry Location Entry Primary Successful Side Size Upsize Upsize Entry Closure Succes sful Closure Location (Fr) 1 (Fr) 2 (Fr) Remarks Device Remarks Femoral Right 6 Fr Exoseal artery Short Estimated blood loss: 10 ml Diagnostic catheters Device Type Used For End Catheter Placement MULTIPACK Pigtail 5 Fr Procedure catheter MULTIPACK JL 4.0 5Fr Procedure catheter MULTIPACK 3DRC 5Fr Procedure catheter Procedure Complications No complications Procedure Medications Medication Administration Route Dosage Versed I.V. 2 mg Fentanyl I.V. 100 mcg Nitro Prescott S.L. 400 Oxygen etCO2 Nasal cannula 2 l/min Lidocaine 2% added to field 20 Heparin Flush Bag added to field 2 bags (1000units/500ml NS) 0.9% NaCl I.V. 100 ml/hr Heparin Bolus I.V. 4000 units Integrilin (Bolus I.V. 9 ml 2mg/ml) Fentanyl I.V. 50 mcg Integrilin (Bolus I.V. 9 ml 2mg/ml) Plavix P.O. 600 mg Hemodynamics Rest BSA: 2.26 (m2) O2 Consumption: Estimated: 265.71 (ml/min) O2 Consumption indexed : Estimated:117.57 (ml/min/m) Heart Rate: 79 (bpm) Snapshots Pre Cath Intra NCS Post Cath Vital Signs Time Heart Resp SPO2 etCO2 NIBP (mmHg) Rhythm Pain Sedation Rate (ipm) (%) (mmHg) Status Level (bpm) 12:07:57 78 25 97 0 176/93(134) NSR w/ ST 0 (11) 10(A) Elevation , No pain 12:12:28 76 27 98 0 169/84(120) NSR w/ ST 0 (11) 10(A) Elevation , No pain 12:16:56 75 16 94 0 162/81(125) NSR w/ ST 0 (11) 10(A) Elevation , No pain 12:21:18 71 16 93 0 152/80(115) NSR w/ ST 0 (11) 10(A) Elevation , No pain 12:25:44 76 17 93 0 150/79(109) NSR w/ ST 0 (11) 10(A) Elevation , No pain 12:30:00 101 18 94 0 128/82(108) NSR w/ ST 0 (11) 10(A) Elevation , No pain 12:34:12 51 18 96 0 144/90(113) NSR w/ ST 0 (11) 10(A) Elevation , No pain 12:38:30 49 16 96 0 140/85(110) NSR w/ ST 0 (11) 10(A) Elevation , No pain 12:42:48 50 18 97 0 133/88(111) NSR w/ ST 0 (11) 10(A) Elevation , No pain Medications Time Medication Route Dose Verified Delivered Reason Notes Effectiveness by by 12:07:06 0.9% NaCl I.V. 100 Fortino Buffie Per physician ml/hr Torsten Sibley RN 12:07:43 Oxygen etCO2 2 Fortino Buffie used for Nasal l/min Torsten Sibley RN procedure cannula 12:07:49 Lidocaine 2% added 20ml Fortino Fortino for local to vial Torsten Sarmiento MD anesthetic field 12:07:57 Heparin Flush added 2 Fortino Fortino used for Bag to bags Torsten Sarmiento MD procedure (1000units/500ml field NS) 12:10:30 Versed I.V. 2 mg Fortino Houserie for sedation Torsten Sibley RN 12:10:36 Fentanyl I.V. 100 Fortino Buffie for sedation mcg Torsten Sibley RN 12:14:56 Nitro Prescott S.L. 400 Fortino Buffie Per physician mcg x Torsten Sibley RN 2 12:15:16 Fentanyl I.V. 50 Fortino Buffie for sedation mcg Torsten Sibley RN 12:23:14 Heparin Bolus I.V. 4000 Fortino Arauz for verif ied units Torsten Sibley RN anticoagulation with dr sarmiento 12:25:25 Integrilin I.V. 9 ml Fortino Arauz for waste d 1 (Bolus 2mg/ml) Torsten Sibley RN antiplatelet ml of therapy vial 12:32:05 Integrilin I.V. 9 ml Fortino Arauz for secon d (Bolus 2mg/ml) Torsten Sibley RN antiplatelet bolus therapy given, wasted 1 ml of vial 12:40:16 Plavix P.O. 600 Fortino Houserie for mg Torsten Sibley RN antiplatelet therapy Procedure Log Time Note 11:50:26 Informed consent obtained and on chart 11:50:54 Procedure Status Emergent Heart Cath (AMI). 11:50:55 Time tracking: Regular hours (M-F 7:00 - 5:00) 11:50:57 Plan of Care:Hemodynamics will remain stable., Cardiac rhythm will remain stable., Comfort level will be maintained., Respiratory function will remain adequate., Patient/ family verbilizes understanding of procedure., Procedure tolerated without complication., Recovers from procedure without complications.. 11:51:01 Tayler Gross RT(R) sent for patient. Start room use. 12:05:28 Vital chart was started 12:05:37 Patient received from ED to CCL 1 Alert and oriented. Tansferred to table in Supine position. 12:05:39 Warm blankets applied, and lexii hugger turned on for patient comfort. 12:05:39 Correct patient and procedure confirmed by team. 12:05:40 ECG and BP/O2 sat monitors applied to patient. 12:05:41 Baseline sample Acquired. 12:05:58 Rhythm: sinus rhythm , w/ ST elevation 12:05:59 Full Disclosure recording started 12:06:02 H&P Date Dictated: 05/11/2019 ER History on chart.. 12:06:03 Pre-procedure instructions explained to patient. 12:06:03 Pre-op teaching completed and patient verbalized understanding. 12:06:04 Family in waiting room. 12:06:09 Patient NPO since Midnight. 12:06:18 Patient allergic to Other allergyCODEINE, IODINE 12:06:20 Is the patient allergic to Iodine/contrast media? Yes. 12:06:23 Was the patient premedicated? Yes 12:06:24 Is patient on blood thinner?No 12:06:29 ACC The patient was administered the following blood thiners within the last 24 hours: Eliquis 12:06:33 Patient diabetic? No. 12:06:34 Previous problem with sedation/anesthesia? No ? 12:06:35 Snore? Yes 12:06:36 Sleep apnea? No 12:06:37 Deviated septum? No 12:06:37 Opens mouth fully? Yes 12:06:38 Sticks out tongue? Yes 12:06:39 Airway obstruction? No ? 12:06:41 Dentures? No ? 12:06:45 Pre procedure: right dorsailis pedis pulse 1+ Palpable, but thready & weak; easily obliterated 12:06:48 Patient pain scale 6/10 ?. 12:06:53 IV patent on arrival in right antecubital with 0.9% NaCl at [facility]. 12:07:06 0.9% NaCl 100 ml/hr I.V. was administered by Davonte Sibley RN; Per physician; Verbal order read back and verified. 12:07:10 Right groin area was prepped with chlora-prep and draped in sterile fashion 12:07:11 Alarms reviewed by R. N. 12:07:11 Sharps counted by scrub and verified by R.N. 12:07:14 Use device set Femoral Dx 12:07:15 ACIST Syringe (52114) opened to sterile field. 12:07:15 Bag Decanter (2002S) opened to sterile field. 12:07:18 ACIST Hand Control (93617) opened to sterile field. 12:07:18 ACIST Manifold (75587) opened to sterile field. 12:07:18 Tegaderm 4 x 4 (1626W) opened to sterile field. 12:07:19 Medline Cath Pack ([id number]) opened to sterile field. 12:07:20 DIAGNOSTIC Multipack 5Fr catheter set (QS5963) opened to sterile field. 12:07:22 EMERALD Guide Wire (946-652) opened to sterile field. 12:07:43 Oxygen 2 l/min etCO2 Nasal cannula was administered by Davonte Sibley RN; used for procedure; Verbal order read back and verified. 12:07:43 SHEATH 6FR Butler ([id number]) opened to sterile field. 12:07:43 INFLATOR Merit BasixCompak (CE5980) opened to sterile field. 12:07:49 Lidocaine 2% 20ml vial added to field was administered by Fortino Sarmiento MD; for local anesthetic; Verbal order read back and verified. 12:07:57 Heparin Flush Bag (1000units/500ml NS) 2 bags added to field was administered by Fortino Sarmiento MD; used for procedure; Verbal order read back and verified. 12:08:44 --------ALL STOP TIME OUT------ 12:08:45 Final Timeout: patient, procedure, and site verified with staff and physician. All members of the team are in agreement. 12:08:46 Right groin site verified by team. 12:08:49 Fire Safety Assessment: A--An alcohol-based skin anteseptic being used preoperatively., C--Open oxygen or nitrous oxide is being used., D--An ESU, laser, or fiber-optic light is being used. 12:08:54 Physical assessment completed. ASA score P 2 - A patient with mild systemic disease as per Fortino Sarmiento MD. 12:08:59 Sedation plan: IV Moderate Sedation Medication:Versed, Fentanyl 12:09:51 Procedure started. 12::53 Zero performed for pressure channel P1 12:10:30 Versed 2 mg I.V. was administered by Davonte Sibley RN; for sedation; Verbal order read back and verified. 12:10:36 Fentanyl 100 mcg I.V. was administered by Davonte Sibley RN; for sedation; Verbal order read back and verified. 12:14:41 Local anesthetic to right femoral artery with Lidocaine 2% by Fortino Sarmiento MD.INITIAL ACCESS ONLY 12:14:56 Nitro Prescott 400 mcg x 2 S.L. was administered by Davonte Sibley RN; Per physician; Verbal order read back and verified. 12:15:10 A 6 Fr Short sheath was inserted into the Right Femoral artery 12:15:16 Fentanyl 50 mcg I.V. was administered by Davonte Sibley RN; for sedation; Verbal order read back and verified. 12:16:05 A MULTIPACK Pigtail 5 Fr catheter was advanced over the wire and used for Procedure. 12:16:14 LV gram done using READ 12:16:17 Injector settings: Ml/sec: 10, Volume: 20, 12:16:26 EF : 40 % 12:16:27 Catheter removed. 12:16:33 A MULTIPACK JL 4.0 5Fr catheter was advanced over the wire and used for Procedure. 12:18:28 Catheter removed. 12:18:45 UNABLE TO ENGAGE LCA 12:19:21 GUIDE 6FR AR 2.0 catheter ([id number]) opened to sterile field. 12:19:33 6 Fr AR 2 guide catheter was inserted over the wire 12:19:58 RCA angiography performed. 12:21:08 Guide catheter removed. 12:21:28 GUIDE 6FR AR 1.0 catheter ([id number]) opened to sterile field. 12:21:36 6 Fr AR 1 guide catheter was inserted over the wire 12:22:54 Pre PCI Site: [place] PDA has 100% stenosis. 12:23:14 Heparin Bolus 4000 units I.V. was administered by Davonte Sibley RN; for anticoagulation; verified with dr sarmiento Verbal order read back and verified. 12:25:13 CHOICE PT Extra Support 182cm wire ([id number]) opened to sterile field. 12:25:25 Integrilin (Bolus 2mg/ml) 9 ml I.V. was administered by Davonte Sibley RN; for antiplatelet therapy; wasted 1 ml of vial Verbal order read back and verified. 12:25:45 CHOICE ES 182 wire advanced. 12:26:09 CHOICE PT Extra Support J 300cm guide wire ([id number]) opened to sterile field. 12:26:12 300Wire advanced across lesion. 12:26:42 Inflate balloon Inflation number: 1 A EMERGE OTW 2.0 x 15 balloon ([id number]) was prepped and advanced across the R PDA , then inflated to 21 ROSS for 0:00 (min:sec) . 12:26:57 Inflation number: 2 The EMERGE OTW 2.0 x 15 balloon ([id number]) was reinflated across the R PDA , to 21 ROSS for 0:00 (min:sec) . 12:28:33 Balloon removed over the wire. 12:29:30 Place stent Inflation Number: 3 A COBRA RX 2.5 X 30 Stent was prepped and advanced across the R PDA . The stent was deployed at 21 ROSS for 0:00 (min:sec) . 12:30:02 Stent catheter was removed intact over wire. 12:30:03 Wire removed. 12:31:27 Guide catheter removed. 12:31:35 A MULTIPACK 3DRC 5Fr catheter was advanced over the wire and used for Procedure. 12:32:05 Integrilin (Bolus 2mg/ml) 9 ml I.V. was administered by Davonte Sibley RN; for antiplatelet therapy; second bolus given, wasted 1 ml of vial Verbal order read back and verified. 12:32:38 BLOCK to LAD angiography performed. 12:33:02 6 Fr XBLAD 3.5 guide catheter was inserted over the wire 12:34:06 GUIDE 6FR XBLAD 3.5 catheter ([id number]) opened to sterile field. 12:34:09 Catheter removed. 12:34:19 UNABLE TO FULLY ENGAGE LCA 12:34:25 Guide catheter removed. 12:34:55 GUIDE 6FR XB 4.0 catheter ([id number]) opened to sterile field. 12:35:09 XB 4 wire advanced. 12:35:56 LCA angiography performed. 12:36:05 Guide catheter removed. 12:36:33 EXOSEAL 6Fr (EX600) opened to sterile field. 12:36:46 Sheath removed intact; hemostasis achieved with Exoseal to the Right Femoral artery. 12:36:51 Procedure ended.(Physican Out) 12:37:58 Fluoroscopy time 09.90 minutes. 12:38:10 Flurop Dose total: 2418 12:38:10 Fluoroscopy dose: 2418 mGy 12:38:31 Dose Area Product 774004 mGy/cm. 12:38:42 Contrast amount:Isovue 300 201ml. 12:40:10 Patient Weight : 220.46 lbs 12:40:16 Plavix 600 mg P.O. was administered by Davonte Sibley RN; for antiplatelet therapy; Verbal order read back and verified. 12:40:32 Patient Height : 73.62 inches 12:40:35 Admit Source: Emergency department 12:41:03 ACT drawn and resulted at 200 seconds. (normal therapeutic range 180-240 seconds). 12:41:26 Maximum allowable dose exceeded? No. 12:41:27 Sharps counted by scrub and verified by R.N. 12:41:31 Post-op/insertion site Right Femoral artery dressed using a 4 x 4 and Tegaderm. 12:41:34 Post-procedure physical assessment completed. ASA score P 2 - A patient with mild systemic disease as per Fortino Sarmiento MD. 12:41:41 Post procedure rhythm: unchanged. 12:41:44 Estimated blood loss: 10 ml 12:42:16 Post procedure instruction explained to patient.Patient verbalizes understanding. 12:42:16 Patient needs reinforcement of post procedure teaching. 12:42:38 Procedure type changed to Cath procedure, Diagnostic procedure, Sedation Charges, Moderate Sedation up to 15 minutes, PCI procedure, AMI/SVG/DIGITAL PRODUCTION MANAGER PTCA or Stent, AMI-BMS/GOPI Initial, Hemochron ACT Test 12:45:14 Procedure and supply charges have been captured, reviewed, submitted and are correct. 12:45:17 Procedure Complication : No complications 12:45:19 Vital chart was stopped 12:45:21 [facility] Findings: MVD- PCI performed (see procedure note) 12:45:24 Operative report dictated upon procedure completion. 12:45:24 See physician's report for complete and final results. 12:45:26 Report given to CVICU. 12:45:28 Patient transfered to CVICU with Bed. 12:46:18 Procedure ended. 12:46:18 Full Disclosure recording stopped 12:46:34 ACC-PCI Only Patient was given prescriptions, or instructed by Fortino Sarmiento MD to start/continue the following medications upon discharge: Plavix 12:46:36 End room use (Document Last) 12:47:33 End room use (Document Last) 12:48:01 End room use (Document Last) Intervention Summary Intervention Notes Time ActionType Lesion and Equipment Action# Pressure Duration Attributes Used 12:26:42 Inflate R PDA EMERGE OTW 1 21 00:00 balloon 2.0 x 15 balloon ([id number]) 12:26:57 Reinflate R PDA EMERGE OTW 2 21 00:00 balloon 2.0 x 15 balloon ([id number]) 12:29:30 Place stent R PDA COBRA RX 2.5 3 21 00:00 X 30 Stent Device Usage Item Name Manufacture Quantity Catalog Number Hospital Part Current Minimal Lot# / Charge Number Stock Stock Serial# Code ACIST Syringe Acist 1 55049 702578 454987 193227 20 (07560) Medical Systems Inc Bag Decanter Microtek 1 2001S 195063 89485 984111 5 (2001S) Medical Inc. ACIST Hand Acist 1 81703 955454 278506 114489 5 Control Medical (83998) Systems Inc ACIST Manifold Acist 1 70952 326122 775054 522066 5 (44166) Medical Systems Inc Tegaderm 4 x 4 3M 1 1626W 232740 209093 346648 5 (1626W) Medline Cath Medline 1 [id number] 865198 81337 808543 5 Pack ([id number]) DIAGNOSTIC Cardinal 1 LZ0240 117986 49456 242429 30 Multipack 5Fr Health catheter set (ZP5769) EMERALD Guide Cardinal 1 502-455 400293 335888 056013 5 Wire (502-455) Health SHEATH 6FR Terumo 1 GPU052 361642 472072 997912 40 Butler (HOZ254) INFLATOR Merit Merit 1 BE3512 596268 007206 117204 15 [facility] (TL1245) MULTIPACK Cardinal 1 508994 5 Pigtail 5 Fr Health catheter MULTIPACK JL Cardinal 1 918005 5 4.0 5Fr Health catheter GUIDE 6FR AR Medtronic 1 [id number] 346928 19796 795883 1 2.0 catheter ([id number]) GUIDE 6FR AR Medtronic 1 [id number] 516706 62020 480512 1 1.0 catheter (WC0BN54) CHOICE PT [place]on 1 [id number] 427195 682547 035842 5 Extra Support Scientific J 300cm guide wire (2402069V9) CHOICE PT [place] 1 [id number] 830032 481184 618822 5 Extra Support Scientific 182cm wire ([id number]) EMERGE OTW 2.0 [place]on 1 [id number] 187975 573608 344531 5 [id number] x 15 balloon Scientific ([id number]) COBRA RX 2.5 X Celonova 1 462747 [id number] 531236 3 [id number] 30 stent Biosciences () MULTIPACK 3DRC Cardinal 1 109317 5 5Fr catheter Health GUIDE 6FR Cardinal 1 [id number] 658831 162774 262752 10 XBLAD 3.5 Health catheter (27383025) GUIDE 6FR XB Cardinal 1 [id number] 592949 488317 062750 2 4.0 catheter Health (36495529) EXOSEAL 6Fr Cardinal 1 EX600 180909 316702 571860 10 (EX600) Health Signature Audit [place] Stage Time Signature Unsigned Intra-Procedure 05/11/2019 Tayler Gross 12:47:33 PM RT(R) Intra-Procedure 05/11/2019 Davonte Sibley RN 12:48:01 PM Intra-Procedure 05/11/2019 Fortino Sarmiento 12:48:21 PM [facility] [address] [facility] [address]
--- NOTE | ~2019-05-11 | DS ---
PATIENT:ALLI CHILDRESS :36 MEDICAL RECORD: [id number] DISCHARGE SUMMARY ADMISSION DATE: 05/11/19 DISCHARGE DATE: 05/12/19 DISCHARGE DATE: 05/12/2019 DISCHARGE DIAGNOSES: 1. Acute inferior myocardial infarction. 2. Percutaneous transluminal coronary angioplasty stent right coronary artery. 3. Hypertension. 4. Hyperlipidemia. 5. Sick sinus syndrome. 6. Status post pacemaker. 7. Paroxysmal atrial fibrillation. HOSPITAL COURSE: Mrs. Childress presents with an acute inferior myocardial infarction, underwent PTCA stent of the RCA. He was discharged home with discontinuation of his Eliquis as he had no further atrial fibrillation. Discontinuation of his Norvasc with the addition of Coreg, Pravachol, aspirin and Plavix to his medical regimen. Follow up with [facility] in 1 month. TRANSINT:[id number] Voice Confirmation ID: [id number] DOCUMENT ID: [id number] CLARI SANFORD MD CC: [id number] DICTATION DATE: 05/12/19 1107 METALLURGICAL ANALYST: 05/13/19 0943 DIS IN 05/12/19 [facility] [address] [id number]
[2019-05-11] MEDS ORDERED: PROTONIX20 MG PO (11:50)
[2019-05-11] MEDS ORDERED: NORVASC5 MG PO (11:53)
--- NOTE | 2019-05-11 11:58 | NUR ---
CARBURETOR MECHANIC AT BEDSIDE TO TAKE PT TO CARBURETOR MECHANIC
[2019-05-11 12:08] LABS: BASOPHILS 0.6 % (0-2); EOSINOPHILS 3.3 % (0-7); HEMOGLOBIN 11.7 g/dL (13.5-17.5); IMMATURE GRANULOCYTES 0.2 % (0-5); LYMPHOCYTES 35.4 % (15-50); MCH 29.9 pg (26.0-34.0); MCHC 31.6 g/dL (31.0-37.0); MCV 94.6 fL (80.0-100.0); MEAN PLATELET VOLUME 9.5 fL (7.4-10.4); NEUTROPHILS 55.5 % (40-80); PLATELET COUNT 233 10x3/uL (130-400); RBC 3.91 10x6/uL (4.20-6.10); RDW 15.5 % (11.5-14.5); WBC 8.7 10x3/uL (4.8-10.8)
[2019-05-11 12:13] LABS: APTT 34.3 SECONDS (22.8-39.4); CALC OSMOLALITY 288 mosm/kg (275-300); CALCIUM 9.1 mg/dL (8.5-10.1); CARBON DIOXIDE 23.1 mmol/L (21.0-32.0); CHLORIDE - SERUM 107 mmol/L (98-107); CREATININE - SERUM 0.9 mg/dL (0.6-1.3); GLUCOSE 142 mg/dL (74-106); INR 1.15 (0.85-1.17); POTASSIUM - SERUM 3.9 mmol/L (3.5-5.1); PROTIME 14.7 SECONDS (11.6-15.0); SODIUM 142 mmol/L (136-145); UREA NITROGEN 24 mg/dL (7-18); eGFR NON AFRICAN AMERICAN 86 mL/min (90-120)
[2019-05-11 12:30] LABS: ALBUMIN 3.6 g/dL (3.4-5.0); ALKALINE PHOSPHATASE 100 U/L (30-120); ALT (SGPT) 20 U/L (10-68); BILIRUBIN - TOTAL 0.51 mg/dL (0.2-1.3); CKMB 1.3 U/L (0.0-3.6); CREATINE KINASE 46 UL (21-232); MAGNESIUM - SERUM 1.7 mg/dL (1.8-2.4); PROTEIN - SERUM 7.9 g/dL (6.4-8.2); TROPONIN-I < 0.017 ng/mL (0.000-0.060)
--- NOTE | 2019-05-11 13:10 | NUR ---
PATIENT RECEIVED TO ROOM VIA BED FROM CORPORATE COMMUNICATIONS INTERN. PATIENT ALERT AND ORIENTED X 4, CM - PACED RATE OF 72, BBS - EXPIRATORY WHEEZES NOTED TO RIGHT, AND CLEAR ON LEFT, DIMINISHED IN THE BASES, BOWEL SOUNDS ACTIVE X 4, RIGHT GROIN SITE WITH SMALL HEMATOMA NOTED, CORPORATE COMMUNICATIONS INTERN RN AT ROOM, PLACED A FEMSTOP, DISTAL PULSE +1 AFTER FEMSTOP PLACED. +2 PRIOR TO PLACEMENT. DRESSING TO RIGHT GROIN C/D/I.HEAD TO TOE ASSESSMENT COMPLETED.
--- NOTE | 2019-05-11 13:30 | NUR ---
PRESSURE REDUCED TO FEMSTOP, DISTAL PULSES +1 TO RIGHT LEG, DRESSING C/D/I. VSS.
--- NOTE | 2019-05-11 14:00 | NUR ---
PRESSURE REDUCED TO FEMSTOP, NO CHANGES NOTED. DRESSING C/D/I. DISTAL PULSES TO RIGHT FOOT +1.
--- NOTE | 2019-05-11 14:10 | NUR ---
SPOKE TO DR. SANFORD REGARDING PATIENT C/O OF INDIGESTION STATES HAS ACID REFLUX AND TAKES PROTONIX AT HOME. OKAY TO ORDER PATIENTS HOME PROTONIX DOSE.
--- NOTE | 2019-05-11 14:30 | NUR ---
PRESSURE REDUCED TO FEMSTOP, DISTAL PULSES +2. DRESSING C/D/I.
--- NOTE | 2019-05-11 14:45 | NUR ---
PRESSURE RELEASED FROM FEMSTOP, DISTAL PULSES +2, WILL LEAVE IN PLACE TO REAPPLY IF NEEDED. CONTINUE TO MONITOR. DRESSING C/D/I.
--- NOTE | 2019-05-11 15:00 | NUR ---
REASSESSMENT COMPLETED. FEMSTOP REMOVED. DISTAL PULSES +2. VSS.
--- NOTE | 2019-05-11 15:15 | NUR ---
RIGHT GROIN SITE, SOFT NO CHANGES NOTED. DISTAL PULSES +2.
--- NOTE | 2019-05-11 18:27 | NUR ---
NO CHANGES NOTED TO RIGHT GROIN. DRESSING C/D/I.
--- NOTE | 2019-05-11 19:20 | NUR ---
PT A/OX4, LUNGS CLEAR, VOICES NEEDS, ON R/A, PULSES EQUAL, ASSESSMENT COMPLETED, PT WATCHING TV WITH NO C/O
--- NOTE | 2019-05-11 21:00 | NUR ---
PT AWAKE, STRAIGHTENED BLANKET AND MADE PT COMFORTABLE, PT STATES HE IS READY TO GO TO SLEEP, VITALS STABLE
--- NOTE | 2019-05-11 23:10 | NUR ---
pt awake, sitting up in chair at bedside, voided in urinal, no c/o
[2019-05-12] VITALS (10 sets, daily range): BP systolic 111–143; BP diastolic 48–67
--- NOTE | 2019-05-12 01:09 | NUR ---
pt resting quietly with eyes closed, vitals stable
--- NOTE | 2019-05-12 05:00 | NUR ---
pt refused bath, states he anticipates to be discharged today and would rather wait to take one at home
--- NOTE | 2019-05-12 07:15 | NUR ---
AWAKES EASILY TO VERBAL STIMULI SKIN WARM AND DRY. RIGHT GROIN DRESSING DRY AND INTACT. PEDAL PULSES PALABLE. DENIES ANY CHEST PAIN. RIGHT HAND IV SALINE LOCKED. MONITOR SR WITH PACER BEATS. VOIDED 400 ML CLEAR JAYLA URINE.
--- NOTE | 2019-05-12 09:34 | NUR ---
up in chair at bedside. tolerated well. talking on phone. no distress
--- NOTE | 2019-05-12 10:18 | NUR ---
HERE UPDATE GIVEN. NO DISTRESS. SITTING UP IN CHAIR WATCHING TV
--- NOTE | 2019-05-12 11:08 | HP ---
PATIENT: ALLI CHILDRESS MEDICAL RECORD: [id number] ACCOUNT: [id number] LOCATION:[facility] [place] : 36 ADMISSION DATE: 05/11/19 PCP: JACI CATES MD HISTORY AND PHYSICAL EXAMINATION ADMITTING DIAGNOSES: 1. Acute inferior myocardial infarction. 2. Coronary artery disease. 3. Previous percutaneous transluminal coronary angioplasty stent. 4. Contrast allergy. 5. TAVR - aortic valve replacement. 6. Cardiomyopathy. 7. Hypertension. 8. Paroxysmal atrial fibrillation. HISTORY OF PRESENT ILLNESS: Mr. Childress was doing his normal activities today and developed onset of substernal chest discomfort, it was approximately 1 hour ago. His EKG is compatible with acute inferior myocardial infarction. He is status post PTCA stent of the RCA in 2018. Since then, he has had a TAVR; with the TAVR he had atrial fibrillation. He is on Eliquis. He has a cardiomyopathy. He is on Entresto and Lasix. PHYSICAL EXAMINATION: CONSTITUTIONAL/GENERAL APPEARANCE: Well nourished, well developed, appears stated age. Level of distress, comfortable. EYES: Lids and conjunctivae noninjected. No discharge. No pallor. ENT: Lips within normal limit. No cyanosis. No pallor. NECK: Carotid arteries, bilateral normal upstroke. No bruits. No thrills. No jugular venous pressure or distention. CERVICAL LYMPH NODES: Nontender. Nonenlarged. THYROID: Not enlarged. No nodules. CARDIOVASCULAR: Precordial exam, nondisplaced. No heaves or pericardial thrills. Rate and rhythm, regular. Heart sounds, normal S1, normal S2. No S3, no gallop, no rub. Systolic murmur, not heard. Diastolic murmur, not heard. RESPIRATORY: Respiratory effort, unlabored. Normal curvature. No thoracic deformity. No chest wall tenderness. Percussion, resonant. Auscultation, clear. No wheezes, no rales, no rhonchi. ABDOMEN: Soft, nondistended, nontender. No abdominal pain, no vomiting and normal appetite. MUSCULOSKELETAL: No joint tenderness, normal gait, normal tone. SKIN: Warm and dry. OVERALL IMPRESSION: Acute inferior myocardial infarction. At this time, we will proceed with coronary angiography. Further care depends upon the findings of the angiography. We will use IV Solu-Medrol and IV Pepcid for the contrast allergy in the acute setting. TRANSINT:[id number] Voice Confirmation ID: [id number] DOCUMENT ID: [id number] HISTORY AND PHYSICAL [id number] ALLI CHILDRESS JEFFREY MD at 1108 CC: [id number] DICTATION DATE: 05/11/19 1153 SHOWER ROOM ATTENDANT: 05/11/19 1211 ADM IN [place] [id number] [place] [address]
--- NOTE | 2019-05-12 11:09 | OP ---
PATIENT NAME: ALLI CHILDRESS MEDICAL RECORD: [id number] :36 LOCATION:[facility] ADMISSION DATE:05/11/19 SURGEON: CLARI SANFORD MD DATE OF OPERATION: 05/11/2019 PROCEDURES: 1. PTCA stent RCA. 2. Left heart catheterization. 3. Selective coronary angiography. 4. BLOCK angiography. 5. Left ventriculogram. INDICATION: Acute inferior myocardial infarction. PROCEDURE IN DETAIL: After informed consent was obtained and after a detailed description of the risks, benefits, as well as alternative therapies, the patient elected to proceed with angiogram and angioplasty. The right femoral area was prepped and draped in normal sterile fashion. Right femoral artery was cannulated via modified Seldinger technique with placement of 6-Croatian sheath. All catheters exchanged through this sheath. FINDINGS: Left ventriculogram was performed in standard 30-degree READ view, reveals global hypokinesis, ejection fraction 35% to 40%. SELECTIVE CORONARY ANGIOGRAPHY: 1. Left main is with no significant angiographic disease. 2. Left anterior descending is totally occluded mid vessel. 3. BLOCK to the LAD is widely patent. 4. Left circumflex has moderate irregularities, but no flow-limiting stenosis. 5. Right coronary has 100% stenosis of the PDA. PTCA STENT OF THE RCA: The stent used was a 3.5 x 30 mm Cobra. Result was 0% residual stenosis. OVERALL IMPRESSION: Successful percutaneous transluminal coronary angioplasty stent of the right coronary artery going from 100% initial stenosis to 0% residual. TRANSINT:[id number] Voice Confirmation ID: [id number] DOCUMENT ID: [id number] CLARI SANFORD MD at 1109 CC: [id number] DICTATION DATE: 05/11/19 1240 SOCIAL MEDIA MARKETING ANALYST: 05/11/19 1758 [place] [address]
--- NOTE | 2019-05-12 12:58 | MORECARE ---
CASE MANAGEMENT DISCHARGE SUMMARY PATIENT: ALLI CHILDRESS UNIT: [id number] ADM DATE: 05/11/19 AGE: 78 : 38 SEX: M ROOM/BED: [facility] AUTHOR: BRINDA SANTIAGO PHYSICIAN: REFERRING PHYSICIAN: CLARI SANFORD MD DATE OF SERVICE: 05/12/19 Discharge Plan Patient Name: ALLI CHILDRESS Facility: [facility]:[place] : 1940 Planned Disposition: Home Anticipated Discharge Date: 05/12/19 Discharge Date: 05/12/2019 Expected LOS: 1 Initial Reviewer: [email or web address] Initial Review Date: 05/11/2019 Generated: 05/12/19 1:58 pm Patient Name: ALLI CHILDRESS Page 73714 at 1258 All edits/amendments must be made on the electronic document DICTATION DATE: 05/12/19 1258 ACCOUNT DEVELOPER: DM 05/12/19 1258 RPT#: [id number] DC DATE:05/12/19 STATUS: DIS IN [facility] [address] [facility] [place] [address] END OF REPORT
--- NOTE | 2019-05-12 13:06 | MORECARE ---
CASE MANAGEMENT DISCHARGE SUMMARY PATIENT: ALLI CHILDRESS UNIT: [id number] ADM DATE: 05/11/19 AGE: 78 : 38 SEX: M ROOM/BED: [facility] AUTHOR: BRINDA SANTIAGO PHYSICIAN: REFERRING PHYSICIAN: CLARI SANFORD MD DATE OF SERVICE: 05/12/19 Discharge Plan Patient Name: ALLI CHILDRESS Facility: [facility]:[place] : 1940 Planned Disposition: Home Anticipated Discharge Date: 05/12/19 Discharge Date: 05/12/2019 Expected LOS: 1 Initial Reviewer: [email or web address] Initial Review Date: 05/11/2019 Generated: 05/12/19 2:06 pm DCPIA - Discharge Planning Initial Assessment Updated by [email or web address]: Jennifer Fleming on 05/12/19 12:59 pm * Is the patient Alert and Oriented? Yes * How many steps to enter\exit or inside your home? few * PCP DR Zazueta * Pharmacy [facility] in [place] * Preadmission Environment Home Alone * ADLs Independent * Equipment Cane * Other Equipment DENIES ANY ADDITIONAL DME * List name and contact numbers for known caregivers / representatives who currently or will assist patient after discharge: PRASAD SEGURA - [phone] * Verbal permission to speak to the caregivers and representatives has been obtained from the patient. Yes * Community resources currently utilized None * Please name any agencies selected above. N/A * Additional services required to return to the preadmission environment? No * Can the patient safely return to the preadmission environment? Yes Last DP export: 05/12/19 11:58 am Patient Name: ALLI CHILDRESS Page 47225 at 1306 All edits/amendments must be made on the electronic document DICTATION DATE: 05/12/19 1306 CURB SUPERVISOR: SUMANTH 05/12/19 1306 RPT#: [id number] DC DATE:05/12/19 STATUS: DIS IN [facility] [address] [place] [address] END OF REPORT
--- NOTE | 2019-05-12 13:17 | MORECARE ---
CASE MANAGEMENT DISCHARGE SUMMARY PATIENT: ALLI CHILDRESS UNIT: [id number] ADM DATE: 05/11/19 AGE: 78 : 38 SEX: M ROOM/BED: [facility] AUTHOR: PAMELA,DOC PHYSICIAN: REFERRING PHYSICIAN: CLARI SANFORD MD DATE OF SERVICE: 05/12/19 Discharge Plan Patient Name: ALLI CHILDRESS Facility: [facility]:[place] : 1940 Planned Disposition: Home Anticipated Discharge Date: 05/12/19 Discharge Date: 05/12/2019 Expected LOS: 1 Initial Reviewer: [email or web address] Initial Review Date: 05/11/2019 Generated: 05/12/19 2:16 pm Comments DCP- Discharge Planning Updated by [email or web address]: Jennifer Fleming on 05/12/19 12:[address] CM MET WITH THE PATIENT AT THE BEDSIDE. PRASAD SEGURA WAS PRESENT. THE PATIENT GAVE VERBAL CONSENT FOR CM TO PROCEED W/ DCP DISCUSSION WITH MS SEGURA BEING PRESENT. CM EXPLAINED MY ROLE. PATIENT ADVISES CM HE IS FINE AND DOES NOT REQUIRE ANY ASSISTANCE, HOME HEALTH AND OR COMMUNITY SERVICES. HE IS ACTIVE ,BOWLING AND GOLFING. HAS TRANSPORTATION TO HOME. [facility] PATIENT FEELS HIS DISCHARGE TO HOME IS SAFE. HAS A CANE AND DENIES ANY OTHER DME. DENIES ANY NEEDS. MS SEGURA WILL ASSIST HIM. DCPIA - Discharge Planning Initial Assessment Updated by [email or web address]: Jennifer Fleming on 05/12/19 12:59 pm * Is the patient Alert and Oriented? Yes * How many steps to enter\exit or inside your home? few * PCP DR Zazueta * Pharmacy [facility] in [place] * Preadmission Environment Home Alone * ADLs Independent * Equipment Cane * Other Equipment DENIES ANY ADDITIONAL DME * List name and contact numbers for known caregivers / representatives who currently or will assist patient after discharge: PRASAD SEGURA - [phone] * Verbal permission to speak to the caregivers and representatives has been obtained from the patient. Yes * Community resources currently utilized None * Please name any agencies selected above. N/A * Additional services required to return to the preadmission environment? No * Can the patient safely return to the preadmission environment? Yes Last DP export: 05/12/19 12:06 pm Patient Name: ALLI CHILDRESS Page 45911 at 1317 All edits/amendments must be made on the electronic document DICTATION DATE: 05/12/196 ARCHERY EQUIPMENT HAY SORTER: SUMANTH 05/12/19 1316 RPT#: [id number] DC DATE:05/12/19 STATUS: DIS IN [facility] [address] [place] [address] END OF REPORT
--- NOTE | 2019-05-13 16:39 | MORECARE ---
CASE MANAGEMENT DISCHARGE SUMMARY PATIENT: ALLI CHILDRESS UNIT: [id number] ADM DATE: 05/11/19 AGE: 78 : 38 SEX: M ROOM/BED: D[facility] AUTHOR: PAMELA,DOC PHYSICIAN: REFERRING PHYSICIAN: CLARI SANFORD MD DATE OF SERVICE: 05/13/19 Discharge Plan Patient Name: ALLI CHILDRESS Facility: [facility]:[place] : 1940 Planned Disposition: Home Anticipated Discharge Date: 05/12/19 Discharge Date: 05/12/2019 Expected LOS: 1 Initial Reviewer: [email or web address] Initial Review Date: 05/11/2019 Generated: 05/13/19 5:39 pm Comments DCP- Discharge Planning Updated by [email or web address]: Jennifer Fleming on 05/12/19 11:[address] CM MET WITH THE PATIENT AT THE BEDSIDE. PRASAD SEGURA WAS PRESENT. THE PATIENT GAVE VERBAL CONSENT FOR CM TO PROCEED W/ DCP DISCUSSION WITH MS SEGURA BEING PRESENT. CM EXPLAINED MY ROLE. PATIENT ADVISES CM HE IS FINE AND DOES NOT REQUIRE ANY ASSISTANCE, HOME HEALTH AND OR COMMUNITY SERVICES. HE IS ACTIVE ,BOWLING AND GOLFING. HAS TRANSPORTATION TO HOME. [facility] PATIENT FEELS HIS DISCHARGE TO HOME IS SAFE. HAS A CANE AND DENIES ANY OTHER DME. DENIES ANY NEEDS. MS SEGURA WILL ASSIST HIM. DCPIA - Discharge Planning Initial Assessment Updated by [email or web address]: Jennifer Fleming on 05/12/19 12:59 pm * Is the patient Alert and Oriented? Yes * How many steps to enter\exit or inside your home? few * PCP DR Zazueta * Pharmacy [facility] in [place] * Preadmission Environment Home Alone * ADLs Independent * Equipment Cane * Other Equipment DENIES ANY ADDITIONAL DME * List name and contact numbers for known caregivers / representatives who currently or will assist patient after discharge: PRASAD SEGURA - [phone] * Verbal permission to speak to the caregivers and representatives has been obtained from the patient. Yes * Community resources currently utilized None * Please name any agencies selected above. N/A * Additional services required to return to the preadmission environment? No * Can the patient safely return to the preadmission environment? Yes Coverage Notice Reviewer: [email or web address] Jodie CejaJenniferjase Cruzs Notice Issued Date-Time: 05/12/2019 12:07 Notice Type: IM Discharge Notice Notice Delivered To: Patient Relationship to Patient: Self Digital Art Director Name: Delivery Method: HAND - Hand Delivered Deidra Days: Prior Verbal Notification: Recipient Understood Notice: Yes Recipient Signature: Yes Med Rec Note Co-signed by Attending: Coverage Notice Comment: Discharge IMM explained. Signature obtained to original patient copy. Signature obtained to original copy to the chart, Last DP export: 05/12/19 11:17 am Patient Name: ALLI CHILDRESS Page 87805 at 1639 All edits/amendments must be made on the electronic document DICTATION DATE: 05/13/19 1639 HULL SORTER: SUMANTH 05/13/19 1639 RPT#: [id number] DC DATE:05/12/19 STATUS: DIS IN [facility] [address] [place] [address] END OF REPORT
== END 2019-05-12 12:35 | disposition home or self-care (01) | DRG 249 ==
LOC: D.ER 11:36 → D.CATH 11:36 → EDSTATUS 13:00 → D.CVICU 13:01 → D.CATH 13:02 → D.CVICU 05-12 12:35
PROVIDERS: Family Medicine; ADMIT Internal Medicine Interventional Cardiology; ATTEND Internal Medicine Interventional Cardiology
PROC: B2151ZZ Fluoroscopy of Left Heart using Low Osmolar Contrast (ICD-10-PCS; 2019-05-11)
PROC: 4A023N7 Measurement of Cardiac Sampling and Pressure, Left Heart, Percutaneous Approach (ICD-10-PCS; 2019-05-11)
PROC: 02703DZ Dilation of Coronary Artery, One Artery with Intraluminal Device, Percutaneous Approach (ICD-10-PCS; principal; 2019-05-11 11:51)
PROC: B2181ZZ Fluoroscopy of Left Internal Mammary Bypass Graft using Low Osmolar Contrast (ICD-10-PCS; 2019-05-11 11:51)
DX: I21.19 ST elevation (STEMI) myocardial infarction involving other coronary artery of inferior wall (principal); I42.9 Cardiomyopathy, unspecified; I49.5 Sick sinus syndrome; I48.0 Paroxysmal atrial fibrillation; I10 Essential (primary) hypertension; E78.5 Hyperlipidemia, unspecified; Z95.0 Presence of cardiac pacemaker; I25.10 Atherosclerotic heart disease of native coronary artery without angina pectoris; Z91.041 Radiographic dye allergy status